=== PATIENT | female | born 1975 | race Caucasian/White ===

== ENCOUNTER 2024-07-01 09:32 | Outpatient (CLI) | payer OTHER, SELFPAY ==
--- NOTE | ~2024-07-01 | US_ITS ---
US pelvic complete w TV Ordering provider: Benny Boyd MD History: . N93.9 - Abnormal uterine and vaginal bleeding, unspecified . Comparison: None. Technique: Transabdominal and endovaginal ultrasound of the pelvis (Doppler ultrasound interrogation techniques used as needed for this exam.) FINDINGS: CERVIX: Normal. UTERUS: Measures 9.3x 4.5x 5.9 cm in length which is within normal limits and is anteverted. No myom etrial masses. ENDOMETRIUM: Normal in thickness measuring 7 mm. IUD is seen in the endometrial cavity. No endometria l masses, cysts or fluid. CUL DE SAC: No free fluid. RIGHT OVARY: Normal in size measuring 3x 2.1x 3 cm. Normal echotexture. Doppler vascular flow present . LEFT OVARY: Normal in size measuring 2.9x 1.1x 1.9 cm. Normal echotexture. Doppler vascular flow pres ent. ADNEXA: Normal. No mass. IMPRESSION: Unremarkable pelvic ultrasound. Reviewed, dictated and finalized at location [facility]. [facility]
== END 2024-07-01 09:33 | disposition home or self-care (01) ==
LOC: MICIMG 09:33
PROVIDERS: PCP Hospitalist; Visit Provider Student in an Organized Health Care Education/Training Program
DX: N93.9 Abnormal uterine and vaginal bleeding, unspecified (principal)
CPT/HCPCS: 76830; 76856

== ENCOUNTER 2024-08-18 14:36 | Emergency (ER) | payer OTHER, SELFPAY ==
[2024-08-18 14:46] VITALS: BP 105/70; PULSE 65; RESP 16; TEMP 36.2; O2SAT 100
--- NOTE | 2024-08-18 14:58 | ED.DENTAL ---
HPI - Dental/Oral General Chief complaint: Dental/Oral Stated complaint: DENTAL PAIN Time Seen by Provider: 08/18/24 14:58 Source: patient Mode of arrival: ambulatory Limitations: no limitations History of Present Illness HPI Narrative: 48-year-old female presents with right lower dental pain starting this morning. No known dental issues. Has appoint with dentist in 2 weeks. All systems reviewed and negative except as noted above. Related Data Home Medications ?Medication ?Instructions ?Recorded ?Confirmed ?Last Taken ?Type esterified estrogens 1.25 mg tablet 1.25 mg PO DAILY 06/22/24 08/18/24 Unknown History levothyroxine 125 mcg tablet 125 mcg PO DAILY 06/22/24 08/18/24 Unknown History (Synthroid) metformin 750 mg tablet,extended 750 mg PO DAILY 06/22/24 08/18/24 Unknown History release 24 hr testosterone undecanoate 100 mg 100 mg PO ONCE 06/22/24 08/18/24 Unknown History capsule testosterone undecanoate 112.5 mg 100 mg PO ONCE 06/22/24 08/18/24 Unknown History capsule tirzepatide 5 mg/0.5 mL 5 mg subcut WEEKLY 06/22/24 08/18/24 Unknown History subcutaneous pen injector (Mounjaro) Allergies Allergy/AdvReac Type Severity Reaction Status Date / Time Penicillins Allergy Intermediate Nausea and Verified 08/18/24 14:59 Vomiting amoxicillin Allergy Mild Hives Verified 08/18/24 14:59 doxycycline Allergy Mild Hives Verified 08/18/24 14:59 nitrofurantoin (From Allergy Mild Hives Verified 08/18/24 14:59 Macrobid) tetracycline Allergy Mild Hives Verified 08/18/24 14:59 diazepam (From Valium) AdvReac Intermediate Difficulty Verified 08/18/24 14:59 Breathing Review of Systems Review of Systems: CONSTITUTIONAL: Denies fever, chills, or sweats. EYES: Denies visual changes, redness, or discharge. ENT: Denies rhinorrhea, congestion, sore throat, or otalgia. Reports right lower dental pain. CARDIOVASCULAR: Denies chest pain, palpitations, or edema. RESPIRATORY: Denies cough or dyspnea. GASTROINTESTINAL: Denies abdominal pain, nausea, vomiting, or diarrhea. GENITOURINARY: Denies dysuria or hematuria. SKIN: Denies rash or itching. MUSCULOSKELETAL: Denies back pain, joint pain, or myalgia. NEUROLOGIC: Denies headache, numbness, or weakness. PSYCHIATRIC: Denies anxiety or depression. All other systems reviewed are negative, except as documented in HPI. [facility] Past Medical History Medical History (Updated 08/18/24 @ 15:03 by Giovanna Woodard NP) Encounter for removal of intrauterine contraceptive device Abnormal uterine bleeding (AUB) Nonalcoholic fatty liver disease Diabetes Surgical History Surgical History History of cataract surgery H/O thyroidectomy Hx laparoscopic cholecystectomy Family History Family History Father Heart disease Diabetes mellitus Grandparent Diabetes mellitus Other Breast cancer Carcinoma of colon Social History Social History (Updated 06/22/24 @ 08:57 by Catrina Saenz CMA) Smoking status: Never smoker Alcohol intake: current Alcohol use details: rare Substance use: never Substance use type: does not use Do You Feel Safe in your Home?: Yes Lack of Transportation: No Current Housing: I Have Housing Concerned About Future Housing: No Difficulty Paying Gas/Electric Bills: No Difficulty Paying for Meds: No Currently Unemployed: No Education: Master's Degree or Higher Difficulty w/ Childcare or Family Care: No Living arrangements: with family Occupation/Education: occupation Gender identity (if verbalized by the patient): Female Comments At time of signature, agree with nursing past medical, surgical, social and family history. There is no relevant family history pertinent to the presenting complaint. Exam Narrative: GENERAL: This is a well-nourished, well-developed patient, in no apparent distress. HEAD: normocephalic, atraumatic. EYES: PERRL. Sclera clear/white. Vision is grossly intact. EARS: External ears normal NOSE: External nose normal MOUTH: No dental issues noted. No swelling or erythema to comes concerning for abscess. NECK: Neck supple, non-tender without lymphadenopathy, masses or thyromegaly. CARDIOVASCULAR: Regular rate and rhythm without murmurs, gallops, or rubs. RESPIRATORY: Clear to auscultation. Breath sounds equal bilaterally. No wheezes, rales, or rhonchi. SKIN: warm, Dry, intact with no suspicious lesions or rash, good texture and turgor. NEURO: awake, alert, and oriented to person, place and time. There were no obvious focal neurologic abnormalities. EXTREMITIES: No joint tenderness, effusion, or edema noted. Course Course Level of Care: Express Care Visit Vital Signs Vital signs: Vital Signs Temperature 36.2 C L 08/18/24 14:46 Pulse Rate 65 08/18/24 14:46 Respiratory Rate 16 08/18/24 14:46 Blood Pressure 105/70 08/18/24 14:46 Pulse Oximetry 100 08/18/24 14:46 Temperature 36.2 C L 08/18/24 14:46 Pulse Rate 65 08/18/24 14:46 Respiratory Rate 16 08/18/24 14:46 Blood Pressure 105/70 08/18/24 14:46 Pulse Oximetry 100 08/18/24 14:46 Reviewed MDM - Dental/Oral MDM Narrative Medical decision making narrative: Patient alert, nontoxic. Will treat with antibiotic for dental pain. Recommend follow-up with dentist. Please be advised this is a medical document. It is intended for [id number] communication. It is written in medical language and may contain unfamiliar abbreviations or verbiage. Medical documents are intended to carry relevant information, facts as evident, and the clinical opinion of the practitioner at the time of the encounter. This report may have been done utilizing a voice recognition system. Attempts have been made to correct errors. However, there may be uncorrected grammatical, spelling, and recognition errors present. The file time of this note does not necessarily represent the time of service. Discharge Plan Discharge Clinical Impression: Pain, dental Patient Disposition: Home, Self-Care Condition: Stable Instructions: Antibiotic Form, Toothache (ED) Additional Instructions: Take antibiotic as prescribed until gone. Take antibiotic with full glass of water. Do not lie flat until 30 minutes after taking antibiotic. Take ibuprofen or Tylenol every 6-8 hours as needed for pain. Follow-up with dentist at scheduled appointment. Patient Language: Nicaraguan Prescriptions: New clindamycin HCl 300 mg capsule 300 mg PO Q8H 10 Days Qty: 30 0RF No Action levothyroxine [Synthroid] 125 mcg tablet 125 mcg PO DAILY Mounjaro 5 mg/0.5 mL pen injector 5 mg subcut WEEKLY metformin 750 mg tablet extended release 24 hr 750 mg PO DAILY esterified estrogens 1.25 mg tablet 1.25 mg PO DAILY testosterone undecanoate 112.5 mg capsule 100 mg PO ONCE Rx Instructions: must administer with a meal/food testosterone undecanoate 100 mg capsule 100 mg PO ONCE progesterone micronized 100 mg capsule 200 mg PO QAM Qty: 60 0RF Rx Instructions: off 7 days; repeat cycle Follow-up/Referrals: Dev,Dakota [Other] Time of Disposition: 15:04
== END 2024-08-18 15:07 | disposition home or self-care (01) ==
PROVIDERS: Emergency Provider Nurse Practitioner Family
DX: K08.89 Other specified disorders of teeth and supporting structures (principal); E11.9 Type 2 diabetes mellitus without complications; Z79.899 Other long term (current) drug therapy; Z79.84 Long term (current) use of oral hypoglycemic drugs
CPT/HCPCS: 99213; G0463

== ENCOUNTER 2024-08-19 23:37 | Emergency (ER) | payer SELFPAY ==
--- OUTSIDE RECORDS SUMMARY | 2024-08-19 23:39 | XMS_ITS | Referral Summary ---
Author Organization [address] lto Address [address] [place] [address] Care Team Providers Care Director Of Career Resources Name Role Phone Dakota Méndez MD Primary Care Provider [phone] Encounters Date Type Department Care Team Description 06/03/2024 3:19 PM MARKETING BUDGET ANALYST - 06/03/2024 4:28 PM MARKETING BUDGET ANALYST Emergency [facility] Emergency Department [address] [place] [address] Blu Wan MD DUB (dysfunctional uterine bleeding) (Primary Dx) Discharge Disposition: Discharge to home or self care from Last 3 Months Allergies Active Allergy Reactions Criticality Noted Date Comments Bee Venom Protein (Honey Bee) Anaphylaxis,Hives,I tching,Shortness of breath High 11/25/2016 Other reaction(s): Other (See Comments) Diazepam Dizziness,Hives,Itc kayli,Other (See comments),Shortness of breath,Swollen tongue High 09/12/2021 Reaction: diarrhea, SOB, hives Other reaction(s): Tongue and Throat Swelling Reaction: diarrhea, SOB, hives Other reaction(s): hives/vomit Other reaction(s): Tongue and Throat Swelling Reaction: diarrhea, SOB, hives Other reaction(s): hives/vomit Other reaction(s): Other (See comments), Swollen tongue Reaction: diarrhea, SOB, hives Other reaction(s): Tongue and Throat Swelling Reaction: diarrhea, SOB, hives Other reaction(s): hives/vomit Doxycycline Unknown 02/14/2022 Reaction: hives, SOB, diarrhea Fire Ant Swelling High 09/06/2020 Nitrofurantoin Headache Low 08/27/2021 Reaction: hives, diarrhea Reaction: hives, diarrhea Nitrofurantoin Monohyd/M-Cryst Headache,Hives,Itch ing,Nausea And Vomiting,Palpitatio ns,Rash Medium 08/01/2013 Other reaction(s): rash Other reaction(s): rash Other reaction(s): rash Penicillins Hives,Itching,Nause a And Vomiting,Rash,Short ness of breath High 08/01/2013 Reaction: hives,SOB, diarrhea Other reaction(s): hives/rash/SOB Reaction: hives,SOB, diarrhea Reaction: hives,SOB, diarrhea Other reaction(s): hives/rash/SOB Tetracyclines Diarrhea,Dizziness, Headache,Hives,Itch ing,Nausea And Vomiting,Other (See comments),Rash,Shor tness of breath High 08/01/2013 Reaction: hives, SOB, diarrhea Reaction: hives, SOB, diarrhea Reaction: hives, SOB, diarrhea Reaction: hives, SOB, diarrhea Reaction: hives, SOB, diarrhea Reaction: hives, SOB, diarrhea Other reaction(s): Other (See comments) Reaction: hives, SOB, diarrhea Reaction: hives, SOB, diarrhea Reaction: hives, SOB, diarrhea Reaction: hives, SOB, diarrhea Medications diphenhydrAMINE (Allergy, diphenhydrAMINE, ) 25 mg capsule 1 tablet EVERY 4 HOURS (route: oral) 2 Active levothyroxine (Synthroid) 175 mcg tablet 1 tablet DIRECTED (route: oral) 2 Active calcium carbonate-vitami n D3 2,500 mg (1,000 mg elemental)-800 unit tablet 1 tablet DAILY (route: oral) 2 Active melatonin 10 mg tablet 1 tablet DAILY (route: oral) 2 Active fluticasone propionate (FLONASE) 50 mcg/actuation nasal spray USE 2 SPRAYS IN EACH NARE DAILY 0 Active EPINEPHrine 0.3 mg/0.3 mL auto-injection syringe Inject into anterior-lateral thigh as needed for anaphylaxis. Call 911 immediately after injection. 8 Active copper (ParaGard T 380A) 380 square mm IUD by intrauterine route 5 Active zinc gluconate 50 mg tablet 1 tablet 2 TIMES DAILY (route: oral) 2 Active multivit-mineral s/folic acid (CENTRUM MULTIGUMMIES ORAL) Take by mouth Active albuterol HFA (PROVENTIL HFA,VENTOLIN HFA,PROAIR HFA) 90 mcg/actuation inhalerIndicatio ns:Mild intermittent asthma with acute exacerbation Inhale 2 puffs every 4 (four) hours as needed for shortness of breath 1 each 3 Active ibuprofen (ADVIL,MOTRIN) 800 mg tablet Take 1 tablet (800 mg total) by mouth every 8 (eight) hours as needed for pain 52 tablet 4 Active Additional Information Patient not taking.Reported on 01/17/2024 metFORMIN XR (GLUCOPHAGE XR) 750 mg 24 hr tablet Take 1 tablet (750 mg total) by mouth daily 4 Active progesterone 50 mg/mL injection Inject 1 mL (50 mg total) into the muscle as instructed daily 4 Active semaglutide (Ozempic) 2 mg/dose (8 mg/3 mL) pen injector injection Inject 2 mg under the skin once a week 4 Active cetirizine (ZyrTEC) 10 mg tablet Take 1 tablet (10 mg total) by mouth daily Active celecoxib (CeleBREX) 200 mg capsuleIndicatio ns:Internal derangement of left knee,Contusion of bone,Patellofemo ral disorder of left knee,Strain of left quadriceps, subsequent encounter Take 1 capsule (200 mg total) by mouth daily 30 capsule 4 Active ondansetron (ZOFRAN) 4 mg tablet Take 1 tablet (4 mg total) by mouth every 6 (six) hours 12 tablet 4 Active Active Problems Problem Noted Date Diagnosed Date Hyperinsulinemia 09/27/2023 Overview (01/17/2024): Last Assessment & Plan: Reinforced dietary lifestyle modifications for the reduction of weight and BMI to help improve chronic comorbid condition. Educated specifically on low-fat, low- carb diet, walking or exercise 30 minutes 3-5 times a week. Dizziness 05/26/2023 Fatty liver 01/12/2022 Overview (01/17/2024): Last Assessment & Plan: Reinforced dietary lifestyle modifications for the reduction of weight and BMI to help improve chronic comorbid condition. Educated specifically on low-fat, low- carb diet, walking or exercise 30 minutes 3-5 times a week. 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 Educated specifically on low-fat, low- carb diet, walking or exercise 30 minutes 3-5 times a week. Type 2 diabetes mellitus wit h hyperglycemia, without long-term current use of insulin 01/04/2020 Overview (01/17/2024): Pt has document BS >126 on multiple occasions with the highest being >300. (Sent to [employer] and pulled from [employer] recs) Her A1C is in the 6%. Description: Pt is urged to follow the recommended TLCs with low calorie diet, and daily aerobic exercise, and weight loss. Metformin, and Ozempic Last Assessment & Plan: Reinforced dietary lifestyle modifications for the reduction of weight and BMI to help improve chronic comorbid condition. Educated specifically on low-fat, low- carb diet, walking or exercise 30 minutes 3-5 times a week. Migraine without aura 06/08/2016 Myelopathy 05/18/2016 Optic neuritis 05/18/2016 Overview (01/17/2024): Transitioned From: Double vision with both eyes open Peripheral neuropathy 04/14/2016 Persistent insomnia 10/29/2014 Postoperative hypothyroidism 10/22/2014 Allergic rhinitis 09/13/2014 Overview (01/17/2024): Transitioned From: Acute sinusitis, recurrence not specified, unspecified location GERD (gastroesophageal reflux disease) 4 Overview (01/17/2024): Last Assessment & Plan: Reinforced dietary lifestyle modifications for the reduction of weight and BMI to help improve chronic comorbid condition. Educated specifically on low-fat, low- carb diet, walking or exercise 30 minutes 3-5 times a week. Resolved Problems Problem Noted Date Diagnosed Date Resolved Date Unspecified fracture of righ t calcaneus, subsequent encounter for fracture with routine healing 02/16/2022 01/17/2024 Displaced fracture of fifth metatarsal bone, left foot, subsequent encounter for fracture with routine healing 02/16/2022 01/17/2024 Displaced fracture of latera l malleolus of left fibula, subsequent encounter for closed fracture with routine healing 02/16/2022 01/17/2024 Immunizations Name Administration Dates Next Due Influenza, Trivalent, IM (MDV) 06/23/2018 Td, Adsorbed, Preservative F ree, Adult Use, Lf Unspecified 07/04/2020 Social History Tobacco Use Types Packs/Day Years Used Date Smoking Tobacco: Never Smokeless Tobacco: Never Personal Safety Answer Date Recorded Have you ever been in or are you currently in a harmful physical or emotional relationship or is someone making you feel afraid or unsafe? Denies 06/03/2024 Comments No Sex and Gender Information Value Date Recorded Sex Assigned at Not on file Legal Sex Female 10:08 AM CDT Gender Identity Not on file Sexual Orientation Not on file Last Filed Vital Signs Vital Sign Reading Time Taken Comments Blood Pressure 115/75 06/03/2024 1:41 PM MARKETING BUDGET ANALYST Pulse 71 06/03/2024 1:41 PM MARKETING BUDGET ANALYST Temperature 36.3 C (97.4 F) 06/03/2024 1:41 PM MARKETING BUDGET ANALYST Respiratory Rate 18 06/03/2024 1:41 PM MARKETING BUDGET ANALYST Oxygen Saturation 100% 06/03/2024 1:41 PM MARKETING BUDGET ANALYST Inhaled Oxygen Concentration - - Weight 68 kg (150 lb) 06/03/2024 1:41 PM MARKETING BUDGET ANALYST Height 172.7 cm (5' 8 ) 06/03/2024 1:41 PM MARKETING BUDGET ANALYST Body Mass Index 22.81 06/03/2024 1:41 PM MARKETING BUDGET ANALYST Plan of Treatment Not on file Procedures Procedure Name Priority Date/Time Associated Diagnosis Comments POCT HCG, URINE Routine 06/03/2024 2:30 PM MARKETING BUDGET ANALYST URINALYSIS, MICROSCOPIC ONLY STAT 06/03/2024 2:28 PM MARKETING BUDGET ANALYST URINALYSIS AND REFLEX TO MICROSCOPIC AND CULTURE STAT 06/03/2024 2:28 PM MARKETING BUDGET ANALYST EGFR STAT 06/03/2024 2:12 PM MARKETING BUDGET ANALYST DIFFERENTIAL AUTO STAT 06/03/2024 2:1 2 PM MARKETING BUDGET ANALYST ANTIBODY SCREEN STAT 06/03/2024 2:12 PM MARKETING BUDGET ANALYST ABO/RH STAT 06/03/2024 2:12 PM MARKETING BUDGET ANALYST COMPREHENSIVE METABOLIC PANEL STAT 06/03/2024 2:12 PM MARKETING BUDGET ANALYST TYPE AND SCREEN STAT 06/03/2024 2:12 PM MARKETING BUDGET ANALYST CBC WITH AUTO DIFFERENTIAL STAT 06/03/2024 2:12 PM MARKETING BUDGET ANALYST from Last 3 Months Results * POCT hCG, urine (06/03/2024 2:30 PM MARKETING BUDGET ANALYST) HCG, ur, POC Negative Negative Lot Number [id number] QC Backgroud Clear Acceptable QC Control Line Acceptable Urine 06/03/2024 2:30 PM MARKETING BUDGET ANALYST us Blu Wan MD POINT OF CARE TEST ORDERABLES Final Result * (ABNORMAL) Urinalysis reflex to microscopic and culture Urine (06/03/2024 2:28 PM MARKETING BUDGET ANALYST) Color, ur Straw Yellow Clarity, ur Clear Clear [facility] ([place]) Specific gravity, ur 1.004 1.003 - 1.030 [facility]) pH, urine 5.5 [facility]) Comment: Interpretive Data U rine pH is affected by diet, medications, systemic acid-base disturbances, and renal tubular function. pH may affect urinary stone formation. For example, urine pH below 6.0 may help reduce the tendency for calcium phosphate stones and pH greater than 6.0 may reduce the tendency for uric acid stone formation. Source: [facility] [employer] Current Interpretive Data was last revised on 2017 Protein, ur ql Negative Negative [facility] ([place]) Glucose, ur ql Negative Negative [facility] ([place]) Ketones, ur Negative Negative [facility] ([place]) Bilirubin, ur Negative Negative [facility] ([place]) Blood, ur 2+(A) Negative [facility] ([place]) Urobilinogen, ur <2.0 <2.0 mg/dL [facility] ([place]) Nitrite, ur Negative Negative [facility]) Leukocyte esterase, ur Negative Negative [facility] ([place]) UA reflex comment Reflex to microscopic UA will be performed. [facility]) Urine 06/03/2024 2:28 PM MARKETING BUDGET ANALYST 06/03/2024 2:31 PM MARKETING BUDGET ANALYST us Blu Wan MD LAB MICROBIOLOGY - GENERAL ORD ERABLES Final Result [facility] ([place]) 1 [facility] Department of Laboratories [place], [place] [id number] * Urinalysis, microscopic only (06/03/2024 2:28 PM MARKETING BUDGET ANALYST) WBC, ur 0-5 0 - 5 /HPF RBC, ur 0-2 0 - 2 /HPF [facility]) Epithelial cells, squamous, ur 1-5 0 - 5 /HPF [facility] ([place]) Culture Reflex Comment Reflex conditions for urine culture (WBC >10) not met. [facility] ([place]) Urine 06/03/2024 2:28 PM MARKETING BUDGET ANALYST 06/03/2024 2:31 PM MARKETING BUDGET ANALYST Blu Wan MD LAB URINE ORDERABLES Final Res ult Performing Organization Address City/[facility]/ZIP Co de Phone Number [facility] ([place]) 1 [facility] [place] [address] * eGFR (06/03/2024 2:12 PM MARKETING BUDGET ANALYST) eGFR 72 >=60 mL/min/1. 73 m2 Comment: Interpretive Data Reference Interval Normal >/= 90 mL/min/1.73m2 Mildly decreased* 60 - 89 mL/min/1.73m2 Mildly to moderately decreased 45 - 59 mL/min/1.73m2 Moderately to severely decreased 30 - 44 mL/min/1.73m2 Severely decreased 15 - 29 mL/min/1.73m2 Kidney Failure < 15 mL/min/1.73m2 *Relative to young adult level Estimated glomerular filtration rate is determined by the 2020 CKD-EPI equation recommended by the National Kidney Foundation (A Unifying Approach to GFR Estimation: Recommendations of the NKF-ASK Task Force on Reassessing the Inclusion of Race in Diagnosing Kidney Disease, JASN 2020). The CKD-EPI equation should not be used for patients with unstable renal function and has not been validated in children and those over 70. Current interpretive data was last reviewed 2021. Blood 06/03/2024 2:12 PM MARKETING BUDGET ANALYST 06/03/2024 2:18 PM MARKETING BUDGET ANALYST Blu Wan MD LAB BLOOD ORDERABLES Final Res ult Performing Organization Address City/[facility]/ZIP Co de Phone Number [facility] ([place]) 1 [facility] [place] [address] * Differential, auto (06/03/2024 2:12 PM MARKETING BUDGET ANALYST) Neutrophil abs 4.4 1.5 - 6.5 K/cumm Imm gran abs 0.0 0.0 - 0.1 K/cumm [facility] ([place]) Lymphocyte abs 2.0 0.8 - 3.3 K/cumm [facility] ([place]) Monocyte abs 0.4 0.2 - 0.8 K/cumm [facility] ([place]) Eosinophil abs 0.1 0.0 - 0.5 K/cumm [facility] ([place]) Basophil abs 0.1 0.0 - 0.1 K/cumm [facility] ([place]) Neutrophil pct 63.0 % [facility] ([place]) Comment: Interpretive Data Percent cell count reference ranges are not reported, since discordance with absolute values may lead to misinterpretation of CBC data. Current Interpretive Data was last revised on 2017. Imm gran pct 0.1 % [facility] ([place]) Comment: Interpretive Data Percent cell count reference ranges are not reported, since discordance with absolute values may lead to misinterpretation of CBC data. Current Interpretive Data was last revised on 2017. Lymphocyte pct 28.5 % [facility] ([place]) Comment: Interpretive Data Percent cell count reference ranges are not reported, since discordance with absolute values may lead to misinterpretation of CBC data. Current Interpretive Data was last revised on 2017. Monocyte pct 5.6 % [facility] ([place]) Comment: Interpretive Data Percent cell count reference ranges are not reported, since discordance with absolute values may lead to misinterpretation of CBC data. Current Interpretive Data was last revised on 2017. Eosinophil pct 1.9 % [facility] ([place]) Comment: Interpretive Data Percent cell count reference ranges are not reported, since discordance with absolute values may lead to misinterpretation of CBC data. Current Interpretive Data was last revised on 2017. Basophil pct 0.9 % [facility] ([place]) Comment: Interpretive Data Percent cell count reference ranges are not reported, since discordance with absolute values may lead to misinterpretation of CBC data. Current Interpretive Data was last revised on 2017. Blood 06/03/2024 2:12 PM MARKETING BUDGET ANALYST 06/03/2024 2:18 PM MARKETING BUDGET ANALYST us Blu Wan MD LAB BLOOD ORDERABLES Final Res ult [facility] ([place]) 1 [facility] [place] [address] * CBC with auto differential (06/03/2024 2:12 PM MARKETING BUDGET ANALYST) WBC 7.0 3.8 - 9.9 K/cumm Hgb 13.2 11.9 - 15.5 g/dL [facility] ([place]) Hct 38.6 35.6 - 45.5 % [facility] ([place]) Plt 337 150 - 400 K/cumm [facility] ([place]) MPV 9.2 9.1 - 12.3 fL [facility] ([place]) RBC 4.59 3.90 - 5.20 M/cumm [facility] ([place]) MCV 84.1 81.3 - 96.4 fL [facility] ([place]) MCH 28.8 27.1 - 33.3 pg [facility] ([place]) MCHC 34.2 32.3 - 35.7 g/dL [facility] ([place]) RDW CV 13.0 11.1 - 14.9 % [facility] ([place]) RDW SD 39.8 35.7 - 48.1 fL [facility] ([place]) NRBC abs 0.00 0.00 - 0.01 K/cumm [facility] ([place]) Blood (Blood, Venous) 06/03/2024 2:12 PM MARKETING BUDGET ANALYST 06/03/2024 2:18 PM MARKETING BUDGET ANALYST us Blu Wan MD LAB BLOOD ORDERABLES Final Res ult [facility] ([place]) 1 [facility] [place] [address] * ABO/Rh (06/03/2024 2:12 PM MARKETING BUDGET ANALYST) ABO/Rh O Positive Blood 06/03/2024 2:12 PM MARKETING BUDGET ANALYST 06/03/2024 2:18 PM MARKETING BUDGET ANALYST Narrative [facility] ([place]) - 06/03/2024 3:13 PM MARKETING BUDGET ANALYST Has the patient had Daratumumab or Isatuximab in the past 6 months?->Unknown Blu Wan MD LAB BLOOD BANK TEST ORDERABLES Final Result Performing Organization Address City/[facility]/ZIP Co de Phone Number [facility] ([place]) 1 [facility] [place] [place] [address] * Antibody screen (06/03/2024 2:12 PM MARKETING BUDGET ANALYST) Darvin, indirect, Gel Interpretation Negative ABSC Blood 06/03/2024 2:12 PM MARKETING BUDGET ANALYST 06/03/2024 2:18 PM MARKETING BUDGET ANALYST Narrative [facility]) - 06/03/2024 3:13 PM MARKETING BUDGET ANALYST Has the patient had Daratumumab or Isatuximab in the past 6 months?->Unknown Blu Wan MD LAB BLOOD BANK TEST ORDERABLES Final Result Performing Organization Address [facility] de Phone Number [facility] ([place]) 1 [facility] [place] [place] [address] * Comprehensive metabolic panel (06/03/2024 2:12 PM MARKETING BUDGET ANALYST) Sodium 136 135 - 145 mmol/L Potassium, pl 4.2 3.3 - 4.9 mmol/L [facility] ([place]) Chloride 102 97 - 110 mmol/L [facility] ([place]) CO2 25 22 - 32 mmol/L [facility] ([place]) Anion gap 9 2 - 15 mmol/L [facility] ([place]) BUN 11 6 - 25 mg/dL [facility] ([place]) Creatinine 0.98 0.60 - 1.10 mg/dL [facility] ([place]) Glucose 88 70 - 199 mg/dL [facility] ([place]) Comment: Interpretive Data Fasting glucose >/= 126 mg/dl is diagnostic for diabetes. Fasting is defined as no caloric intake for at least 8 hours. Fasting glucose between 100 mg/dl to 125 mg/dl is diagnostic of prediabetes. In a patient with classic symptoms of hyperglycemia or hyperglycemic crisis, a random glucose >/= 200 mg/dl is diagnostic for diabetes. In the absence of unequivocal hyperglycemia, results should be confirmed by repeat testing. The classification and Diagnosis of Diabetes Diabetes Care 202; 46: S19-S40. Current interpretive data was last revised 2022. Calcium 10.0 8.5 - 10.3 mg/dL [facility] ([place]) Bilirubin, total 0.3 0.1 - 1.2 mg/dL [facility] ([place]) Protein, pl 7.1 6.5 - 8.5 g/dL [facility] ([place]) Albumin 4.7 3.5 - 5.0 g/dL [facility] ([place]) Alk phos 86 40 - 130 Units/L [facility] ([place]) ALT 8 7 - 45 Units/L [facility] ([place]) AST 16 10 - 45 Units/L [facility] ([place]) Blood 06/03/2024 2:12 PM MARKETING BUDGET ANALYST 06/03/2024 2:18 PM MARKETING BUDGET ANALYST Blu Wan MD LAB BLOOD ORDERABLES Final Res ult [facility] ([place]) 1 [facility] Department of Laboratories [place], [place] [id number] from Last 3 [place] [address] [facility] H[facility]/PPO Address: [address] [address] [place] [address] [facility] H[facility]/PPO Address: [address] [address] [place] [address] Advance Directives For more information, please contact: [phone] * Full Code (Latest Code Status on File) Date Activated Date Inactivated Comments 05/26/2023 4:30 PM 05/26/2023 9:10 PM Care Teams Director Of Career Resources Relationship Specialty Start Date End Date Dakota Méndez MD [facility] [place] [address] PCP - General Family Medicine 02/10/24
--- OUTSIDE RECORDS SUMMARY | 2024-08-19 23:39 | XMS_ITS | Continuity of Care Document ---
Author Organization [facility] Address [address] [place] [address] Phone Care Team Providers Care Mortgage Loan Underwriter Name Role Phone Ebony Couch MD Unavailable Unavailable Allergies, Adverse Reactions, Alerts Substance Reaction Status Criticality NITROFURANTOIN MACROCRYSTALLINE Active No Information nitrofurantoin Active No Informatio n venom-honey bee Active No Informati on lactose Active No Information diazepam Hives Active No Information Penicillins Hives Active No Information doxycycline Hives Active No Information Medications Medication Instructions Dosage Effective Dates (start - stop) Status Comments B-COMPLEX PLUS VITAMIN C (unknown strength) Not Available - Active ANAI-MAG (unknown strength) Not Available - Active ASPIRIN (unknown strength) Not Available - No Longer Active Procedures Procedure Date Office/outpatient visit, est, prob foc F FT ARCH SUPRT PREMOLD LONGIT Office/outpatient visit, est, prob foc J AFO MULTILIGAMENTUS Ankle Support Office/outpatient visit, est, prob foc D ec X-ray exam, ankle, 2 views X-ray exam, foot, complete, 3+ views Jun Office/outpatient visit, est, prob foc N X-ray exam, foot, complete, 3+ views May Office/outpatient visit, new, detailed N Advance Directives Directive Yes / No Effective Date File Name No Information Encounters Encounter Description Practice Location Reason(s) For Visit Diagnoses Date Provider Providers Copied on Encounter Office/outpat ient visit, est, prob foc [facility], [address] [place] [address], [id number], [phone] [facility] DOI 05-04-2012 Recheck left ankle and cuboid fracture (chief complaint) Fx closed fibula NOSFx closed foot, cuboid Iza B. [address] [place] [address], [facility], . tel:[phone] Office/outpat ient visit, est, prob [facility], [address] [place] [address], [id number], tel:[phone] [facility] Fx closed fibula NOSFx closed foot, cuboidAfter care, healing traumatic fx, lower leg Couch B. [address] [place] [address], [facility], . tel:[phone] Office/outpat ient visit, est, prob [facility], [address] [place] [address], [id number], tel:[phone] [facility] Fx closed fibula NOSFx closed foot, cuboid Couch B. [address] [place] [address], [facility], [place]. tel:[phone] Office/outpat ient visit, est, prob [facility], [address] [place] [address], [id number], tel:[phone] [facility] recheck left ankle (chief complaint) Fx closed foot, cuboidFx closed fibula NOS Couch B. [address] [place] [address], [facility], [place]. tel:[phone] Office/outpat ient visit, new, [facility], [address] [place] [address], [id number], tel:[phone] [facility] Fx closed fibula NOSFx closed foot, cuboid Iza [facility] [address] [place], [address], [place]. tel:[phone] Family History Family Member Type Diagnosis Age At Onset No Information Payers Payer name Insurance type Covered green party ID Tatiana sexton(s) IVORY Frazier [id number] Social History Type Description Quantity Date Captured Comments Alcohol Use Details No Caffeine Use Details No Tobacco Use Status No Information Smoking Status No Information Smoking Tobacco Use Details Cigarette: No Details Available Cigarette: No Details Available Sex Female Vital Signs Date / Time: Height Weight BMI Pulse Rate Blood Pressure Temperature Respiratory Rate Body Surface Area Head Circumference Head Circ. Percentile Wt./Jorge. Percentile BMI percentile Pulse Ox Inhaled Ox 10:20 AM 68.00 in 72.575 kg (160.00 lbs) 24.3 3 kg/m eter (2) 82 /min 130/80 mm[Hg] Chief Complaint And Reason For Visit From encounter dated '08/10/2012 10:15'. DOI 05-04-2012 Recheck left ankle and cuboid fracture (chief complaint) Reason For Referral Reason For Referral No Information History Of Present Illness Encounter Date Complaint History Of Prese nt Illness DOI 05-04-2012 Reche ck left ankle and cuboid fracture Functional Status Date Functional Assessmen t No Information Instructions Date Instruction Additional Infor mation Ok to take over the counter medi cations Spenco othotics may place in kristin es for support Follow work restrictions as note d Ok to take over the counter medi cations Ice affected area Wean out of boot int o regular shoe with active ankle brace Take medications with food Follow work restrictions as note d start weight bearing in boot as tolerated. Don't have to sleep in the boot if preferred. Follow work restrictions as note d Continue boot and nonweightbeari ng Follow work restrictions as note d Wear brace as instructed Reviewed medications Rest affected area Medication instructi ons were given regarding Take one Aspirin tablet daily.. Use assistance devic e support (cane, crutches, walker) Weight bearing status: non weigh t bearing in boot Assessments Type Assessment Date No Information Patient Care Teams Name Effective Dates (start - stop) Status Members No Information
--- OUTSIDE RECORDS SUMMARY | 2024-08-19 23:39 | XMS_ITS | Clinical Summary ---
Author Organization [facility] Address [address] [place] [address] Care Team Providers Care Distribution Supervisor Name Role Phone Dakota Méndez MD Primary Care Provider [phone] Allergies Active Allergy Reactions Criticality Noted Date [...] with the highest being >300. (Sent to [employer] and pulled from [employer] recs) Her A1C is in the 6%. [...] closed fracture with routine healing 02/16/2022 01/17/2024 Encounters Date Type Department Care Team Description 06/03/2024 3:19 PM ADMINISTRATIVE TECH - 06/03/2024 4:28 PM ADMINISTRATIVE TECH Emergency [facility] Emergency Department [address] [place], [place] [id number] Blu Wan MD DUB (dysfunctional uterine bleeding) (Primary Dx) Discharge Disposition: Discharge to home or self care from Last 3 Months Immunizations Name Administration Dates Next Due Influenza, Trivalent, IM (MDV) 06/23/2018 Td, Adsorbed, Preservative F ree, Adult Use, Lf Unspecified 07/04/2020 Surgical History Surgery Date Site/Laterality Comments THYROIDECTOMY 07/05/2014 - 07/04/2015 CHOLECYSTECTOMY 07/05/2012 - 07/04/2013 OTHER SURGICAL HISTORY calanus surgery Medical History Medical History Date Comments Gall stones Thyroid cancer (HCC) Breast cancer (HCC) Unspecified fracture of righ t calcaneus, subsequent encounter for fracture with routine healing 02/16/2022 Displaced fracture of fifth metatarsal bone, left foot, subsequent encounter for fracture with routine healing 02/16/2022 Displaced fracture of latera l malleolus of left fibula, subsequent encounter for closed fracture with routine healing 02/16/2022 Family History Medical History Relation Name Comments Arthritis Other Relation Name Status Comments Other Social History Tobacco Use Types Packs/Day Years [...] on file Sexual Orientation Not on file Obstetrics History Last Filed Vital Signs Vital Sign Reading Time Taken Comments Blood Pressure 115/75 06/03/2024 1:41 PM ADMINISTRATIVE TECH Pulse 71 06/03/2024 1:41 PM ADMINISTRATIVE TECH Temperature 36.3 C (97.4 F) 06/03/2024 1:41 PM ADMINISTRATIVE TECH Respiratory Rate 18 06/03/2024 1:41 PM ADMINISTRATIVE TECH Oxygen Saturation 100% 06/03/2024 1:41 PM ADMINISTRATIVE TECH Inhaled Oxygen Concentration - - Weight 68 kg (150 lb) 06/03/2024 1:41 PM ADMINISTRATIVE TECH Height 172.7 cm (5' 8 ) 06/03/2024 1:41 PM ADMINISTRATIVE TECH Body Mass Index 22.81 06/03/2024 1:41 PM ADMINISTRATIVE TECH Plan of Treatment Health Maintenance Due Date Last Done Comments Albumin Creatinine Ratio, Urine 1976 Cervical Cancer Screening 1976 Colon Cancer Screening-Colonoscopy 1976 Depression Screening 1976 Hemoglobin A1C 1976 Hepatitis C Screening 1976 Dilated Eye Exam 1976 Foot Exam 1976 Pneumococcal vaccine <65 (1 of 2 - PCV) 1982 Hepatitis B Screening 1994 Regular Well Visit/Exam 18-64 1994 Breast Cancer Screening-Mammogram 06/07/2020 019 DTaP/Tdap/Td Vaccine (1 - Tdap) 07/05/2020 0 Influenza Vaccine (#1) 2024 06/23/2018 Lipid Panel 09/23/2024 09/24/2023 eGFR 06/03/2025 06/03/2024, 07/2 07/2023, 05/26/2023 Procedures Procedure Name Priority Date/Time Associated Diagnosis Comments POCT HCG, URINE Routine 06/03/2024 2:30 PM ADMINISTRATIVE TECH URINALYSIS, MICROSCOPIC ONLY STAT 06/03/2024 2:28 PM ADMINISTRATIVE TECH URINALYSIS AND REFLEX TO MICROSCOPIC AND CULTURE STAT 06/03/2024 2:28 PM ADMINISTRATIVE TECH EGFR STAT 06/03/2024 2:12 PM ADMINISTRATIVE TECH DIFFERENTIAL AUTO STAT 06/03/2024 2:1 2 PM ADMINISTRATIVE TECH ANTIBODY SCREEN STAT 06/03/2024 2:12 PM ADMINISTRATIVE TECH ABO/RH STAT 06/03/2024 2:12 PM ADMINISTRATIVE TECH COMPREHENSIVE METABOLIC PANEL STAT 06/03/2024 2:12 PM ADMINISTRATIVE TECH TYPE AND SCREEN STAT 06/03/2024 2:12 PM ADMINISTRATIVE TECH CBC WITH AUTO DIFFERENTIAL STAT 06/03/2024 2:12 PM ADMINISTRATIVE TECH from Last 3 Months Results * POCT hCG, urine (06/03/2024 2:30 PM ADMINISTRATIVE TECH) HCG, ur, POC Negative Negative Lot Number [id number] QC Backgroud Clear Acceptable QC Control Line Acceptable Urine 06/03/2024 2:30 PM ADMINISTRATIVE TECH Blu Wan MD POINT OF CARE TEST ORDERABLES Final Result * (ABNORMAL) Urinalysis reflex to microscopic and culture Urine (06/03/2024 2:28 PM ADMINISTRATIVE TECH) Color, ur Straw Yellow Clarity, ur Clear Clear [facility] ([place]) Specific gravity, ur 1.004 1.003 - 1.030 [facility] ([place]) pH, urine 5.5 [facility] ([place]) Comment: Interpretive Data U rine pH is affected by diet, medications, systemic acid-base disturbances, and renal tubular function. pH may affect urinary stone formation. For example, urine pH below 6.0 may help reduce the tendency for calcium phosphate stones and pH greater than 6.0 may reduce the tendency for uric acid stone formation. Source: [facility] [employer] Current Interpretive Data was last revised on [...] Reflex to microscopic UA will be performed. [facility]) Urine 06/03/2024 2:28 PM ADMINISTRATIVE TECH 06/03/2024 2:31 PM ADMINISTRATIVE TECH Blu Wan MD LAB MICROBIOLOGY - GENERAL ORD ERABLES Final Result Performing Organization Address City/[facility]/ZIP Co de Phone Number [facility] ([place]) [address] [facility] [place] [address] * Urinalysis, microscopic only (06/03/2024 2:28 PM ADMINISTRATIVE TECH) WBC, ur 0-5 0 - 5 /HPF RBC, ur 0-2 0 - 2 /HPF [facility] ([place]) Epithelial cells, squamous, ur 1-5 0 - 5 /HPF [facility] ([place]) Culture Reflex Comment Reflex conditions for urine culture (WBC >10) not met. [facility] ([place]) Urine 06/03/2024 2:28 PM ADMINISTRATIVE TECH 06/03/2024 2:31 PM ADMINISTRATIVE TECH Blu Wan MD LAB URINE ORDERABLES Final Res ult [facility] ([place]) [address] [facility] [place] [address] * eGFR (06/03/2024 2:12 PM ADMINISTRATIVE TECH) eGFR 72 >=60 mL/min/1. 73 m2 Comment: [...] last reviewed 2021. Blood 06/03/2024 2:12 PM ADMINISTRATIVE TECH 06/03/2024 2:18 PM ADMINISTRATIVE TECH us Blu Wan MD LAB BLOOD ORDERABLES Final Res ult SOL [facility] [address] [facility] Department [place] [address] * Differential, auto (06/03/2024 2:12 PM ADMINISTRATIVE TECH) Neutrophil abs 4.4 1.5 - 6.5 K/cumm [...] revised on 2017. Blood 06/03/2024 2:12 PM ADMINISTRATIVE TECH 06/03/2024 2:18 PM ADMINISTRATIVE TECH us Blu Wan MD LAB BLOOD ORDERABLES Final Res ult [facility] [address] [facility] Department [place] [address] * CBC with auto differential (06/03/2024 2:12 PM ADMINISTRATIVE TECH) WBC 7.0 3.8 - 9.9 K/cumm Hgb [...] ([place]) Blood (Blood, Venous) 06/03/2024 2:12 PM ADMINISTRATIVE TECH 06/03/2024 2:18 PM ADMINISTRATIVE TECH Blu Wan MD LAB BLOOD ORDERABLES Final Res ult [facility] [address] [facility] [place] [address] * ABO/Rh (06/03/2024 2:12 PM ADMINISTRATIVE TECH) ABO/Rh O Positive Blood 06/03/2024 2:12 PM ADMINISTRATIVE TECH 06/03/2024 2:18 PM ADMINISTRATIVE TECH Narrative [facility] ([place]) - 06/03/2024 3:13 PM ADMINISTRATIVE TECH Has the patient had Daratumumab or Isatuximab in the past 6 months?->Unknown Blu Wan MD LAB BLOOD BANK TEST ORDERABLES Final Result [facility] [address] [facility] [place] [address] * Antibody screen (06/03/2024 2:12 PM ADMINISTRATIVE TECH) Darvin, indirect, Gel Interpretation Negative ABSC Blood 06/03/2024 2:12 PM ADMINISTRATIVE TECH 06/03/2024 2:18 PM ADMINISTRATIVE TECH Narrative [facility] ([place]) - 06/03/2024 3:13 PM ADMINISTRATIVE TECH Has the patient had Daratumumab or Isatuximab in the past 6 months?->Unknown Blu Wan MD LAB BLOOD BANK TEST ORDERABLES Final Result [facility] ([place]) [address] [facility] Department [place] [address] * Comprehensive metabolic panel (06/03/2024 2:12 PM ADMINISTRATIVE TECH) Sodium 136 135 - 145 mmol/L Potassium, pl 4.2 3.3 - 4.9 mmol/L [facility] ([place]) Chloride 102 97 - 110 mmol/L [facility] CO2 25 22 - 32 mmol/L [facility]) Anion gap 9 2 - 15 mmol/L [facility] ([place] BUN 11 6 - 25 mg/dL [facility]) Creatinine 0.98 0.60 - 1.10 mg/dL [facility]) Glucose 88 70 - 199 mg/dL [facility] ([place]) Comment: Interpretive Data Fasting glucose >/= [...] [facility] ([place]) Blood 06/03/2024 2:12 PM ADMINISTRATIVE TECH 06/03/2024 2:18 PM ADMINISTRATIVE TECH us Blu Wan MD LAB BLOOD ORDERABLES Final Res ult [facility] ([place]) [address] [facility] Department [place] [address] from Last 3 Months Insurance [facility] Address: [facility] [address] [place] [address] [facility] H[facility]/PPO Address: [facility] [address] [place] [address] Advance Directives For more information, please contact: [phone] * Full Code (Latest Code Status on File) Date Activated Date Inactivated Comments 05/26/2023 4:30 PM 05/26/2023 9:10 PM Care Teams Distribution Supervisor Relationship Specialty Start Date End Date Dakota Méndez MD [address] [place] [id number] PCP - General Family Medicine 02/10/24
--- OUTSIDE RECORDS SUMMARY | 2024-08-19 23:39 | XMS_ITS | Clinical Summary ---
Author Organization [facility] Address [address] [place] [address] Care Team Providers Care Leather Tacker Name Role Phone Unavailable Primary Care Provider Unavailabl e Allergies Active Allergy Reactions Criticality Noted Date Comments Diazepam Anaphylaxis High 12/20/2022 Penicillins Anaphylaxis High 12/20/2022 Tetracycline Anaphylaxis High 12/20/2022 Medications albuterol sulfate HFA 90 mcg/actuation aerosol inhaler Inhale 2 puffs by mouth every 4 (four) hours as needed for shortness of breath 8.5 Gram 12/20/2022 12:24 PM CDT 3 Active predniSONE (DELTASONE) 20 mg tablet Take 2 tablets (40 mg) by mouth daily for 5 days 10 Tablet 12/20/2022 12:24 PM CDT 3 Active EPINEPHrine (EPIPEN) 0.3 mg/0.3 mL Auto-Injector Inject into anterior-lateral thigh as needed for anaphylaxis. Call 911 immediately after injection. 2 Each 12/01/2023 7:10 PM CDT 4 Active semaglutide (Ozempic) 1 mg/dose (4 mg/3 mL) Pen Injector Inject 1 mg under the skin 1 (one) time per week. 3 mL 1 4 Active ibuprofen (MOTRIN) 800 mg tablet Take 1 tablet (800 mg total) by mouth every 8 (eight) hours as needed for pain 52 Tablet 01/15/2024 9:27 AM CDT 4 Active celecoxib (CeleBREX) 200 mg capsule Take 1 Capsule (200 mg) by mouth daily. 30 Capsule 01/18/2024 11:29 AM CDT 4 Active tirzepatide (Mounjaro) 5 mg/0.5 mL Pen Injector Inject 5 mg by subcutaneous injection every 7 days. 2 mL 5 04/24/2024 11:54 AM CDT 4 Active metFORMIN (GLUCOPHAGE XR) 750 mg Extended Release 24 hour tablet Take 1 tablet (750 mg) by mouth in the morning. Do not crush, chew, or split. 90 Tablet 07/24/2024 12:29 PM OIL EXPLORATION ENGINEER 4 Active tirzepatide (Mounjaro) 5 mg/0.5 mL Pen Injector Inject 5 mg under the skin every 7 (seven) days. 2 mL 5 07/24/2024 12:29 PM OIL EXPLORATION ENGINEER 4 Active Synthroid 125 mcg tablet Take 1 Tablet (125 mcg) by mouth daily in the morning. 90 Tablet 3 08/18/2024 3:32 PM OIL EXPLORATION ENGINEER 4 Active azithromycin (ZITHROMAX) 250 mg tablet Take 2 tablets on day 1 followed by 1 tablet daily on days 2-5. 6 Tablet 06/15/2024 10:04 AM OIL EXPLORATION ENGINEER 4 Active methylPREDNISo lone (MEDROL DOSPACK) 4 mg Tablets, Dose Pack Follow package instructions 21 Tablet 06/15/2024 4:53 PM OIL EXPLORATION ENGINEER 4 Active progesterone micronized (PROMETRIUM) 100 mg Capsule Take 2 Capsules (200 mg) by mouth daily in the morning. Off for 7 days; repeat cycle. 60 Capsule 07/24/2024 12:29 PM OIL EXPLORATION ENGINEER 5 Active clindamycin HCL (CLEOCIN) 300 mg Capsule Take 1 Capsule (300 mg) by mouth every 8 hours for 10 days. 30 Capsule 08/18/2024 3:32 PM OIL EXPLORATION ENGINEER 5 08/28/19 25 Active clarithromycin (BIAXIN) 500 mg tablet Take 0.5 Tablets (250 mg) by mouth 2 times daily for 10 days. 10 Tablet 07/12/2024 2:10 PM OIL EXPLORATION ENGINEER 5 07/22/19 25 Encounters Date Type Department Care Team Description 07/27/2024 External Device Data [facility] ABSTRACTION Provider, Abstract from Last 3 Months Social History Tobacco Use Types Packs/Day Years Used Date Smoking Tobacco: Never Assessed Comments Unknown Sex and Gender Information Value Date Recorded Sex Assigned at Not on file Legal Sex Female 10:33 AM CDT Gender Identity Not on file Sexual Orientation Not on file Plan of Treatment Health Maintenance Due Date Last Done Comments DTAP/TDAP/TD VACCINES (1 - Tdap) 09/03/1995 HEPATITIS B VACCINES (1 of 3 - 19+ 3-dose series) 09/03/1995 CERVICAL CANCER SCREENING 2006 BREAST CANCER SCREENING 2016 COLORECTAL SCREENING 2021 Colorectal Cancer Screening 2021 FIT-DNA Q 3 years 2021 FIT/FOBT Q 1 year 2021 Flex Sig/CT Colonography Q 5 years 2021 INFLUENZA VACCINE (#1) 2024 PNEUMOCOCCAL VACCINE 0-64 YEARS Aged Out No longer eligible based on patient's age to complete this topic Insurance [employer] (INTERNAL) [facility] [employer] Commercial
--- OUTSIDE RECORDS SUMMARY | 2024-08-19 23:39 | XMS_ITS | Encounter Summary ---
Author Organization [facility] Address [address] [place] [address] Care Team Providers Care Executive Coach Name Role Phone No, Physician Primary Care Provider [phone] Unknown, Notinfile Primary Care Provider Unavail able Festus Grigsby MD Primary Care Provider [phone] Dakota Méndez MD Primary Care Provider [phone] Encounter Details Date Type Department Care Team (Late st Contact Info) Description 12/15/2023 Telephone [facility] [address] [address] Festus Grigsby MD [address] [place] [address] Social History Tobacco Use Types Packs/Day Years Used Date Smoking Tobacco: Never Smokeless Tobacco: Never Personal Safety Answer Date Recorded Have you ever been in or are you currently in a harmful physical or emotional relationship or is someone making you feel afraid or unsafe? Denies 05/26/2023 Comments Unknown Sex and Gender Information Value Date Recorded Sex Assigned at Not on file Legal Sex Female 10:08 AM CDT Gender Identity Not on file Sexual Orientation Not on file documented as of this encounter Plan of Treatment Not on file documented as of this encounter Visit Diagnoses Not on filedocumented in this encounter Care Teams Executive Coach Relationship Specialty Start Date End Date No, Physician PCP - General 12/20/22 01/13/24 Unknown, Notinfile PCP - General 01/17/24 01/22/24 Festus Grigsby MD [address] [place] [address] PCP - General Family Medicine 01/23/24 02/08/24 Dakota Méndez MD [facility] [place] [address] PCP - General Family Medicine 02/10/24 documented as of this encounter
[2024-08-19 23:58] VITALS: BP 117/58; PULSE 71; RESP 15; TEMP 36.4; O2SAT 99
--- NOTE | 2024-08-20 01:30 | PC.NURSE ---
AT 0130 ON 08/20/2024 IT WAS NOTICED BY REGISTRATION; BERNARDINO THAT PT LEFT PRIOR TO BEING SEEN BY EDP. BERNARDINO MADE THIS CHARGE-RN AWARE.
--- OUTSIDE RECORDS SUMMARY | 2024-08-20 01:35 | XMS_ITS | Continuity of Care Document ---
Author Organization [facility] Address [address] [place] [address] Phone Care Team Providers Care Fastener Technologist Name Role Phone Ebony Couch MD Unavailable [...] Encounter Office/outpat ient visit, est, prob foc [facility], [address] [place] [address], [id number], [phone] [facility] DOI 05-04-2012 Recheck left ankle and cuboid fracture (chief complaint) Fx closed fibula NOSFx closed foot, cuboid Iza B. [address] [place] [address], [facility], . tel:[phone] Office/outpat ient visit, est, prob [facility], [address] [place] [address], [id number], tel:[phone] [facility] Fx closed fibula NOSFx closed foot, cuboidAfter care, healing traumatic fx, lower leg Couch B. [address] [place] [address], [facility], . tel:[phone] Office/outpat ient visit, est, prob [facility], [address] [place] [address], [id number], tel:[phone] [facility] Fx closed fibula NOSFx closed foot, cuboid Couch B. [address] [place] [address], [facility], [place]. tel:[phone] Office/outpat ient visit, est, prob [facility], [address] [place] [address], [id number], tel:[phone] [facility] recheck left ankle (chief complaint) Fx closed foot, cuboidFx closed fibula NOS Couch B. [address] [place] [address], [facility], [place]. tel:[phone] Office/outpat ient visit, new, [facility], [address] [place] [address], [id number], tel:[phone] [facility] Fx closed fibula NOSFx closed foot, cuboid Iza Barkley [address] [place], [address], [place]. tel:[phone] Family History Family Member Type Diagnosis Age At Onset No Information Payers Payer name Insurance type Covered alliance party ID Tatiana sexton(s) IVORY Frazier [id number] Social History Type Description Quantity Date Captured [...]
--- OUTSIDE RECORDS SUMMARY | 2024-08-20 01:35 | XMS_ITS | Referral Summary ---
Author Organization [address] lto Address [address] ted [facility] [place] [address] Care Team Providers Care Fisher Diving Name Role Phone Dakota Méndez MD Primary Care Provider [phone] Encounters Date Type Department Care Team Description 06/03/2024 3:19 PM COMMUNITY CENTER COORDINATOR - 06/03/2024 4:28 PM COMMUNITY CENTER COORDINATOR Emergency [facility] Emergency Department [address] [place] [address] Blu Wan MD DUB (dysfunctional [...] with the highest being >300. (Sent to [employer] and pulled from [employer] recs) Her A1C is in the 6%. [...] fracture with routine healing 02/16/2022 01/17/2024 Immunizations Immunization Administration Dates Next Due Influenza, Trivalent, IM [...] Comments Blood Pressure 115/75 06/03/2024 1:41 PM COMMUNITY CENTER COORDINATOR Pulse 71 06/03/2024 1:41 PM COMMUNITY CENTER COORDINATOR Temperature 36.3 C (97.4 F) 06/03/2024 1:41 PM COMMUNITY CENTER COORDINATOR Respiratory Rate 18 06/03/2024 1:41 PM COMMUNITY CENTER COORDINATOR Oxygen Saturation 100% 06/03/2024 1:41 PM COMMUNITY CENTER COORDINATOR Inhaled Oxygen Concentration - - Weight 68 kg (150 lb) 06/03/2024 1:41 PM COMMUNITY CENTER COORDINATOR Height 172.7 cm (5' 8 ) 06/03/2024 1:41 PM COMMUNITY CENTER COORDINATOR Body Mass Index 22.81 06/03/2024 1:41 PM COMMUNITY CENTER COORDINATOR Plan of Treatment Not on file Procedures Procedure Name Priority Date/Time Associated Diagnosis Comments POCT HCG, URINE Routine 06/03/2024 2:30 PM COMMUNITY CENTER COORDINATOR URINALYSIS, MICROSCOPIC ONLY STAT 06/03/2024 2:28 PM COMMUNITY CENTER COORDINATOR URINALYSIS AND REFLEX TO MICROSCOPIC AND CULTURE STAT 06/03/2024 2:28 PM COMMUNITY CENTER COORDINATOR EGFR STAT 06/03/2024 2:12 PM COMMUNITY CENTER COORDINATOR DIFFERENTIAL AUTO STAT 06/03/2024 2:1 2 PM COMMUNITY CENTER COORDINATOR ANTIBODY SCREEN STAT 06/03/2024 2:12 PM COMMUNITY CENTER COORDINATOR ABO/RH STAT 06/03/2024 2:12 PM COMMUNITY CENTER COORDINATOR COMPREHENSIVE METABOLIC PANEL STAT 06/03/2024 2:12 PM COMMUNITY CENTER COORDINATOR TYPE AND SCREEN STAT 06/03/2024 2:12 PM COMMUNITY CENTER COORDINATOR CBC WITH AUTO DIFFERENTIAL STAT 06/03/2024 2:12 PM COMMUNITY CENTER COORDINATOR from Last 3 Months Results * POCT hCG, urine (06/03/2024 2:30 PM COMMUNITY CENTER COORDINATOR) HCG, ur, POC Negative Negative Lot Number [id number] QC Backgroud Clear Acceptable QC Control Line Acceptable Urine 06/03/2024 2:30 PM COMMUNITY CENTER COORDINATOR us Blu Wan MD POINT OF CARE TEST ORDERABLES Final Result * (ABNORMAL) Urinalysis reflex to microscopic and culture Urine (06/03/2024 2:28 PM COMMUNITY CENTER COORDINATOR) Color, ur Straw Yellow Clarity, ur Clear [...] tendency for uric acid stone formation. Source: [facility] Current Interpretive Data was last revised on [...] [facility] ([place]) Urine 06/03/2024 2:28 PM COMMUNITY CENTER COORDINATOR 06/03/2024 2:31 PM COMMUNITY CENTER COORDINATOR us Blu Wan MD LAB MICROBIOLOGY - GENERAL ORD ERABLES Final Result [facility] ([place]) 1 [facility] Department of Laboratories [place], [place] [id number] * Urinalysis, microscopic only (06/03/2024 2:28 PM COMMUNITY CENTER COORDINATOR) WBC, ur 0-5 0 - 5 /HPF RBC, ur 0-2 0 - 2 /HPF [facility] ([place]) Epithelial cells, squamous, ur 1-5 0 - 5 /HPF [facility] ([place]) Culture Reflex Comment Reflex conditions for urine culture (WBC >10) not met. [facility] ([place]) Urine 06/03/2024 2:28 PM COMMUNITY CENTER COORDINATOR 06/03/2024 2:31 PM COMMUNITY CENTER COORDINATOR Blu Wan MD LAB URINE ORDERABLES Final Res ult Performing Organization Address City/[facility]/ZIP Co de Phone Number [facility] ([place]) 1 [facility] [place] [address] * eGFR (06/03/2024 2:12 PM COMMUNITY CENTER COORDINATOR) eGFR 72 >=60 mL/min/1. 73 m2 Comment: [...] last reviewed 2021. Blood 06/03/2024 2:12 PM COMMUNITY CENTER COORDINATOR 06/03/2024 2:18 PM COMMUNITY CENTER COORDINATOR Blu Wan MD LAB BLOOD ORDERABLES Final Res ult Performing Organization Address City/[facility]/ZIP Co de Phone Number [facility] ([place]) [address] [facility] [place] [address] * Differential, auto (06/03/2024 2:12 PM COMMUNITY CENTER COORDINATOR) Neutrophil abs 4.4 1.5 - 6.5 K/cumm [...] revised on 2017. Blood 06/03/2024 2:12 PM COMMUNITY CENTER COORDINATOR 06/03/2024 2:18 PM COMMUNITY CENTER COORDINATOR us Blu Wan MD LAB BLOOD ORDERABLES Final Res ult [facility] ([place]) 1 [facility] [place] [address] * CBC with auto differential (06/03/2024 2:12 PM COMMUNITY CENTER COORDINATOR) WBC 7.0 3.8 - 9.9 K/cumm Hgb [...] ([place]) Blood (Blood, Venous) 06/03/2024 2:12 PM COMMUNITY CENTER COORDINATOR 06/03/2024 2:18 PM COMMUNITY CENTER COORDINATOR us Blu Wan MD LAB BLOOD ORDERABLES Final Res ult [facility] ([place]) 1 [facility] [place] [address] * ABO/Rh (06/03/2024 2:12 PM COMMUNITY CENTER COORDINATOR) ABO/Rh O Positive Blood 06/03/2024 2:12 PM COMMUNITY CENTER COORDINATOR 06/03/2024 2:18 PM COMMUNITY CENTER COORDINATOR Narrative [facility] ([place]) - 06/03/2024 3:13 PM COMMUNITY CENTER COORDINATOR Has the patient had Daratumumab or Isatuximab in the past 6 months?->Unknown Blu Wan MD LAB BLOOD BANK TEST ORDERABLES Final Result Performing Organization Address City/[facility]/ZIP Co de Phone Number [facility] ([place]) 1 [facility] [place] [address] * Antibody screen (06/03/2024 2:12 PM COMMUNITY CENTER COORDINATOR) Darvin, indirect, Gel Interpretation Negative ABSC Blood 06/03/2024 2:12 PM COMMUNITY CENTER COORDINATOR 06/03/2024 2:18 PM COMMUNITY CENTER COORDINATOR Narrative [facility] [place]) - 06/03/2024 3:13 PM COMMUNITY CENTER COORDINATOR Has the patient had Daratumumab or Isatuximab in the past 6 months?->Unknown Blu Wan MD LAB BLOOD BANK TEST ORDERABLES Final Result Performing Organization Address [facility] de Phone Number [facility] ([place]) 1 [facility] [place] [address] * Comprehensive metabolic panel (06/03/2024 2:12 PM COMMUNITY CENTER COORDINATOR) Sodium 136 135 - 145 mmol/L Potassium, pl 4.2 3.3 - 4.9 mmol/L [facility] ([place]) Chloride 102 97 - 110 mmol/L [facility] ([place]) CO2 25 22 - 32 mmol/L [facility] ([place]) Anion gap 9 2 - 15 mmol/L [facility] ([place]) BUN 11 6 - 25 mg/dL [facility] ([place]) Creatinine 0.98 0.60 - 1.10 mg/dL [facility] ([place]) Glucose 88 70 - 199 mg/dL [facility] ([place]) Comment: Interpretive Data Fasting glucose >/= [...] [facility] ([place]) Blood 06/03/2024 2:12 PM COMMUNITY CENTER COORDINATOR 06/03/2024 2:18 PM COMMUNITY CENTER COORDINATOR Blu Wan MD LAB BLOOD ORDERABLES Final Res ult [facility] ([place]) 1 [facility] Department of Laboratories [place], [place] [id number] from Last [address] [place] [address] [facility] Advance Directives For more information, please contact: [phone] * Full Code (Latest Code Status on File) Date Activated Date Inactivated Comments 05/26/2023 4:30 PM 05/26/2023 9:10 PM Care Teams Fisher Diving Relationship Specialty Start Date End Date Dakota Méndez MD [facility] [place] [address] PCP - General Family Medicine 02/10/24
--- OUTSIDE RECORDS SUMMARY | 2024-08-20 01:35 | XMS_ITS | Clinical Summary ---
Author Organization [address] lt Address [address] [place] [address] Care Team Providers Care Mortgage Loan Closer Name Role Phone Dakota Méndez MD Primary Care Provider [phone] Allergies Active Allergy Reactions Criticality Noted Date [...] with the highest being >300. (Sent to [employer] and pulled from [employer] recs) Her A1C is in the 6%. [...] Department Care Team Description 06/03/2024 3:19 PM PULL UP HAND - 06/03/2024 4:28 PM PULL UP HAND Emergency [facility] Emergency Department [address] [place], [place] [id number] Blu Wan MD DUB (dysfunctional uterine bleeding) (Primary Dx) Discharge Disposition: Discharge to home or self care from Last 3 Months Immunizations Immunization Administration Dates Next Due Influenza, [...] Comments Blood Pressure 115/75 06/03/2024 1:41 PM PULL UP HAND Pulse 71 06/03/2024 1:41 PM PULL UP HAND Temperature 36.3 C (97.4 F) 06/03/2024 1:41 PM PULL UP HAND Respiratory Rate 18 06/03/2024 1:41 PM PULL UP HAND Oxygen Saturation 100% 06/03/2024 1:41 PM PULL UP HAND Inhaled Oxygen Concentration - - Weight 68 kg (150 lb) 06/03/2024 1:41 PM PULL UP HAND Height 172.7 cm (5' 8 ) 06/03/2024 1:41 PM PULL UP HAND Body Mass Index 22.81 06/03/2024 1:41 PM PULL UP HAND Plan of Treatment Health Maintenance Due Date Last Done Comments Albumin Creatinine Ratio, Urine 1976 Cervical Cancer Screening 1976 Colon Cancer Screening-Colonoscopy 1976 Depression Screening 1976 Hemoglobin A1C 1976 Hepatitis C Screening 1976 Dilated Eye Exam 1976 Foot Exam 1976 Hepatitis B Screening 1994 Regular Well Visit/Exam 18-64 1994 Pneumococcal vaccine <65 (1 of 2 - PCV) 09/03/1995 Breast Cancer Screening-Mammogram 06/07/2020 019 DTaP/Tdap/Td Vaccine (1 - Tdap) 07/05/2020 0 Influenza Vaccine (#1) 2024 06/23/2018 Lipid Panel 09/23/2024 09/24/2023 eGFR 06/03/2025 06/03/2024, 07/2 07/2023, 05/26/2023 Procedures Procedure Name Priority Date/Time Associated Diagnosis Comments POCT HCG, URINE Routine 06/03/2024 2:30 PM PULL UP HAND URINALYSIS, MICROSCOPIC ONLY STAT 06/03/2024 2:28 PM PULL UP HAND URINALYSIS AND REFLEX TO MICROSCOPIC AND CULTURE STAT 06/03/2024 2:28 PM PULL UP HAND EGFR STAT 06/03/2024 2:12 PM PULL UP HAND DIFFERENTIAL AUTO STAT 06/03/2024 2:1 2 PM PULL UP HAND ANTIBODY SCREEN STAT 06/03/2024 2:12 PM PULL UP HAND ABO/RH STAT 06/03/2024 2:12 PM PULL UP HAND COMPREHENSIVE METABOLIC PANEL STAT 06/03/2024 2:12 PM PULL UP HAND TYPE AND SCREEN STAT 06/03/2024 2:12 PM PULL UP HAND CBC WITH AUTO DIFFERENTIAL STAT 06/03/2024 2:12 PM PULL UP HAND from Last 3 Months Results * POCT hCG, urine (06/03/2024 2:30 PM PULL UP HAND) HCG, ur, POC Negative Negative Lot Number [id number] QC Backgroud Clear Acceptable QC Control Line Acceptable Urine 06/03/2024 2:30 PM PULL UP HAND Blu Wan MD POINT OF CARE TEST ORDERABLES Final Result * (ABNORMAL) Urinalysis reflex to microscopic and culture Urine (06/03/2024 2:28 PM PULL UP HAND) Color, ur Straw Yellow Clarity, ur Clear [...] tendency for uric acid stone formation. Source: [facility] [employer] Current Interpretive Data was last revised on [...] [facility] ([place]) Urine 06/03/2024 2:28 PM PULL UP HAND 06/03/2024 2:31 PM PULL UP HAND lBu Wan MD LAB MICROBIOLOGY - GENERAL ORD ERABLES Final Result Performing Organization Address City/[facility]/ZIP Co de Phone Number [facility] ([place]) [address] [facility] [place] [address] * Urinalysis, microscopic only (06/03/2024 2:28 PM PULL UP HAND) WBC, ur 0-5 0 - 5 /HPF RBC, ur 0-2 0 - 2 /HPF [facility] ([place]) Epithelial cells, squamous, ur 1-5 0 - 5 /HPF [facility] ([place]) Culture Reflex Comment Reflex conditions for urine culture (WBC >10) not met. [facility] ([place]) Urine 06/03/2024 2:28 PM PULL UP HAND 06/03/2024 2:31 PM PULL UP HAND Blu Wan MD LAB URINE ORDERABLES Final Res ult [facility] ([place]) 1 [facility] [place] [address] * eGFR (06/03/2024 2:12 PM PULL UP HAND) eGFR 72 >=60 mL/min/1. 73 m2 Comment: [...] last reviewed 2021. Blood 06/03/2024 2:12 PM PULL UP HAND 06/03/2024 2:18 PM PULL UP HAND us Blu Wan MD LAB BLOOD ORDERABLES Final Res ult [facility] 1 [facility] [place] [address] * Differential, auto (06/03/2024 2:12 PM PULL UP HAND) Neutrophil abs 4.4 1.5 - 6.5 K/cumm [...] revised on 2017. Blood 06/03/2024 2:12 PM PULL UP HAND 06/03/2024 2:18 PM PULL UP HAND us Blu Wan MD LAB BLOOD ORDERABLES Final Res ult [facility] ([place]) 1 [facility] [place] [address] * CBC with auto differential (06/03/2024 2:12 PM PULL UP HAND) WBC 7.0 3.8 - 9.9 K/cumm Hgb [...] ([place]) Blood (Blood, Venous) 06/03/2024 2:12 PM PULL UP HAND 06/03/2024 2:18 PM PULL UP HAND Blu Wan MD LAB BLOOD ORDERABLES Final Res ult [facility] ([place]) 1 [facility] [place] [address] * ABO/Rh (06/03/2024 2:12 PM PULL UP HAND) ABO/Rh O Positive Blood 06/03/2024 2:12 PM PULL UP HAND 06/03/2024 2:18 PM PULL UP HAND Narrative [facility] ([place]) - 06/03/2024 3:13 PM PULL UP HAND Has the patient had Daratumumab or Isatuximab in the past 6 months?->Unknown Blu Wan MD LAB BLOOD BANK TEST ORDERABLES Final Result [facility] ([place]) 1 [facility] [place] [address] * Antibody screen (06/03/2024 2:12 PM PULL UP HAND) Darvin, indirect, Gel Interpretation Negative ABSC Blood 06/03/2024 2:12 PM PULL UP HAND 06/03/2024 2:18 PM PULL UP HAND Narrative [facility] ([place]) - 06/03/2024 3:13 PM PULL UP HAND Has the patient had Daratumumab or Isatuximab in the past 6 months?->Unknown Blu Wan MD LAB BLOOD BANK TEST ORDERABLES Final Result [facility] ([place]) 1 [facility] [place] [address] * Comprehensive metabolic panel (06/03/2024 2:12 PM PULL UP HAND) Sodium 136 135 - 145 mmol/L Potassium, [...] [facility] ([place]) Blood 06/03/2024 2:12 PM PULL UP HAND 06/03/2024 2:18 PM PULL UP HAND us Blu Wan MD LAB BLOOD ORDERABLES Final Res ult [facility] ([place]) 1 [facility] [place] [address] from Last 3 Months Insurance [facility] Advance Directives For more information, please contact: [phone] * Full Code (Latest Code Status on File) Date Activated Date Inactivated Comments 05/26/2023 4:30 PM 05/26/2023 9:10 PM Care Teams Mortgage Loan Closer Relationship Specialty Start Date End Date Dakota Méndez MD [address] [place] [id number] PCP - General Family Medicine 02/10/24
--- OUTSIDE RECORDS SUMMARY | 2024-08-20 01:35 | XMS_ITS | Clinical Summary ---
Author Organization [employer] [facility] Address [address] [address] Care Team Providers Care Repair Service Dispatcher Name Role Phone Unavailable Primary Care Provider [...] or split. 90 Tablet 07/24/2024 12:29 PM MAMMOGRAPHER 4 Active tirzepatide (Mounjaro) 5 mg/0.5 mL Pen Injector Inject 5 mg under the skin every 7 (seven) days. 2 mL 5 07/24/2024 12:29 PM MAMMOGRAPHER 4 Active Synthroid 125 mcg tablet Take 1 Tablet (125 mcg) by mouth daily in the morning. 90 Tablet 3 08/18/2024 3:32 PM MAMMOGRAPHER 4 Active azithromycin (ZITHROMAX) 250 mg tablet Take 2 tablets on day 1 followed by 1 tablet daily on days 2-5. 6 Tablet 06/15/2024 10:04 AM MAMMOGRAPHER 4 Active methylPREDNISo lone (MEDROL DOSPACK) 4 mg Tablets, Dose Pack Follow package instructions 21 Tablet 06/15/2024 4:53 PM MAMMOGRAPHER 4 Active progesterone micronized (PROMETRIUM) 100 mg Capsule Take 2 Capsules (200 mg) by mouth daily in the morning. Off for 7 days; repeat cycle. 60 Capsule 07/24/2024 12:29 PM MAMMOGRAPHER 5 Active clindamycin HCL (CLEOCIN) 300 mg Capsule Take 1 Capsule (300 mg) by mouth every 8 hours for 10 days. 30 Capsule 08/18/2024 3:32 PM MAMMOGRAPHER 5 08/28/19 25 Active clarithromycin (BIAXIN) 500 mg tablet Take 0.5 Tablets (250 mg) by mouth 2 times daily for 10 days. 10 Tablet 07/12/2024 2:10 PM MAMMOGRAPHER 5 07/22/19 25 Encounters Date Type Department [...]
--- OUTSIDE RECORDS SUMMARY | 2024-08-20 01:35 | XMS_ITS | Encounter Summary ---
Author Organization [facility] Healthcare Address [address] [place] [address] Care Team Providers Care Dress Draper Name Role Phone No, Physician Primary Care Provider [phone] Unknown, Notinfile Primary Care Provider Unavail able Festus Grigsby MD Primary Care Provider [phone] Dakota Méndez MD Primary Care Provider [phone] Encounter Details Date Type Department Care Team (Late st Contact Info) Description 12/15/2023 Telephone Family Physicians [address] [address] Festus Grigsby MD [address] [place] [address] Social History Tobacco Use Types Packs/Day [...] on filedocumented in this encounter Care Teams Dress Draper Relationship Specialty Start Date End Date No, Physician PCP - General 12/20/22 01/13/24 Unknown, Notinfile PCP - General 01/17/24 01/22/24 Festus Grigsby MD [address] [place] [address] PCP - General Family Medicine 01/23/24 02/08/24 Dakota Méndez MD [facility] [place] [address] PCP - General Family Medicine 02/10/24 documented as of this encounter
== END 2024-08-20 01:30 | disposition left against medical advice (07) ==
DX: K08.89 Other specified disorders of teeth and supporting structures (principal)
CPT/HCPCS: 99199

== ENCOUNTER 2024-08-20 08:58 | Emergency (ER) | payer OTHER, SELFPAY ==
--- NOTE | 2024-08-20 09:00 | ED.DENTAL ---
HPI - Dental/Oral General Chief complaint: Dental/Oral Stated complaint: Tooth Pain Time Seen by Provider: 08/20/24 09:00 Source: patient Mode of arrival: ambulatory Limitations: no limitations History of Present Illness HPI Narrative: Mayra is a 48-year-old female patient presenting to the clinic today with complaints of dental pain. She was seen 2 days ago in the clinic and given prescription for clindamycin. Went to the ED last night for right lower dental pain/swelling. State she was there for 3 hours and ended up walking out without being seen. Denies any fever, chills, or bodyaches, States it is burning and very tender to touch. Pain is radiating into her right lateral neck and into the right ear. Has a dentist appointment scheduled in 2 weeks. Related Data Home Medications ?Medication ?Instructions ?Recorded ?Confirmed ?Last Taken ?Type esterified estrogens 1.25 mg tablet 1.25 mg PO DAILY 06/22/24 08/18/24 Unknown History levothyroxine 125 mcg tablet 125 mcg PO DAILY 06/22/24 08/18/24 Unknown History (Synthroid) metformin 750 mg tablet,extended 750 mg PO DAILY 06/22/24 08/18/24 Unknown History release 24 hr testosterone undecanoate 100 mg 100 mg PO ONCE 06/22/24 08/18/24 Unknown History capsule testosterone undecanoate 112.5 mg 100 mg PO ONCE 06/22/24 08/18/24 Unknown History capsule tirzepatide 5 mg/0.5 mL 5 mg subcut WEEKLY 06/22/24 08/18/24 Unknown History subcutaneous pen injector (Mounjaro) Allergies Allergy/AdvReac Type Severity Reaction Status Date / Time Penicillins Allergy Intermediate Nausea and Verified 08/20/24 00:04 Vomiting amoxicillin Allergy Mild Hives Verified 08/20/24 00:04 doxycycline Allergy Mild Hives Verified 08/20/24 00:04 nitrofurantoin (From Allergy Mild Hives Verified 08/20/24 00:04 Macrobid) tetracycline Allergy Mild Hives Verified 08/20/24 00:04 diazepam (From Valium) AdvReac Intermediate Difficulty Verified 08/20/24 00:04 Breathing Review of Systems Review of Systems: Pertinent positives per HPI. Patient denies any fever, chills, rash, headache, visual changes, dizziness, cough, runny nose, sore throat, shortness of breath, chest pain, palpitations, nausea, vomiting, diarrhea, constipation, abdominal pain, or any urinary issues. [facility] Past Medical History Medical History Encounter for removal of intrauterine contraceptive device Abnormal uterine bleeding (AUB) Nonalcoholic fatty liver disease Diabetes Surgical History Surgical History History of cataract surgery H/O thyroidectomy Hx laparoscopic cholecystectomy Family History Family History Father Heart disease Diabetes mellitus Grandparent Diabetes mellitus Other Breast cancer Carcinoma of colon Social History Social History Smoking status: Never smoker Alcohol intake: current Alcohol use details: rare Substance use: never Substance use type: does not use Do You Feel Safe in your Home?: Yes Lack of Transportation: No Current Housing: I Have Housing Concerned About Future Housing: No Difficulty Paying Gas/Electric Bills: No Difficulty Paying for Meds: No Currently Unemployed: No Education: Master's Degree or Higher Difficulty w/ Childcare or Family Care: No Living arrangements: with family Occupation/Education: occupation Gender identity (if verbalized by the patient): Female Comments At the time of my signature, I reviewed and agree with the nursing past medical, surgical, social, and family history. There is no relevant family history pertinent to the patient complaint. Exam Narrative: General: Well-developed, well nourished, in no apparent distress Head: Normocephalic, atraumatic Eyes: Pupils equally round and reactive to light bilaterally, EOM intact, sclera and conjunctive clear, no discharge, lids normal Ears: TMs intact and clear, ear canals clear, no drainage, grossly hearing normal. Nose: Nares patent, no discharge, no inflammation, no sinus tenderness. Mouth: Oropharynx without lesions or masses, good dentition, MMM. Right lower jaw swelling without fluctuance. TTP with mild erythema, ttp over right lower 2nd and 3rd molars. Neck: Supple, trachea midline, no enlargement of anterior or posterior cervical nodes, no thyroid masses or goiter palpable. Cardio: Regular rate and rhythm, s1 and s2 normal, no murmur appreciated. Resp: Clear to auscultation bilaterally anteriorly and posteriorly, no rhonchi, rales, wheezing or rubs Course Course Emergency Course: Portions of this record may have been created with voice recognition software. Level of Care: Express Care Visit Vital Signs Vital signs: Vital Signs Temperature 36.4 C 08/20/24 09:07 Pulse Rate 75 08/20/24 09:07 Respiratory Rate 16 08/20/24 09:07 Blood Pressure 124/74 08/20/24 09:07 Pulse Oximetry 100 08/20/24 09:07 Temperature 36.4 C 08/20/24 09:07 Pulse Rate 75 08/20/24 09:07 Respiratory Rate 16 08/20/24 09:07 Blood Pressure 124/74 08/20/24 09:07 Pulse Oximetry 100 08/20/24 09:07 Vital signs reviewed MDM - Dental/Oral MDM Narrative Medical decision making narrative: At the time of visit patient is resting comfortably on the exam table. Patient appears to be nontoxic. Medications: Rocephin 1 g IM-patient has had this medication before has not had allergic reaction. Plan: Patient has a dental abscess to the right lower jaw/tooth-2nd molar. Not able to drain in the clinic today. Rocephin 1 g IM given in the clinic today. After watching patient for 15 minutes after Rocephin injection there was no reaction. Will have patient stop clindamycin and start cefdinir and metronidazole. Follow-up with dentist as soon as possible. Supportive measures were discussed with the patient and they voiced understanding discharge instructions and agrees to treatment plan. Return precautions reviewed Differential Diagnosis Differential diagnosis: Likely gingival abscess, dental caries, toothache, dental abscess, fracture of tooth and aphthous ulcer Discharge Plan Discharge Clinical Impression: Dental abscess Patient Disposition: Home, Self-Care Condition: Stable Instructions: Antibiotic Form, Dental Abscess (ED) Additional Instructions: Rocephin 1 GM IM given in the clinic today. Stop clindamycin and start metronidazole and cefdinir as prescribed. Recommend taking a probiotic 2 hours before or 2 hours after the antibiotic daily Increase fluids and stay well hydrated May apply ice pack to the affected area to help alleviate pain May apply Orajel to the affected area to help alleviate pain Take Tylenol/ibuprofen- may alternate every 4 hours as needed for pain or may be more beneficial to take 1Gm tylenol and 800mg ibuprofen together every 8 hours. Follow-up with dentist as scheduled- may try to call the office to see if you can get in sooner. Patient Language: Italian Prescriptions: New metronidazole 500 mg tablet 500 mg PO Q8H 10 Days Qty: 30 0RF cefdinir 300 mg capsule 300 mg PO Q12H 10 Days Qty: 20 0RF No Action clindamycin HCl 300 mg capsule 300 mg PO Q8H 10 Days Qty: 30 0RF levothyroxine [Synthroid] 125 mcg tablet 125 mcg PO DAILY Mounjaro 5 mg/0.5 mL pen injector 5 mg subcut WEEKLY metformin 750 mg tablet extended release 24 hr 750 mg PO DAILY esterified estrogens 1.25 mg tablet 1.25 mg PO DAILY testosterone undecanoate 112.5 mg capsule 100 mg PO ONCE Rx Instructions: must administer with a meal/food testosterone undecanoate 100 mg capsule 100 mg PO ONCE progesterone micronized 100 mg capsule 200 mg PO QAM Qty: 60 0RF Rx Instructions: off 7 days; repeat cycle Follow-up/Referrals: Seb,MD Festus [Primary Care Provider] - Time of Disposition: 09:38 Quality NIHSS Nursing Documentation ED NIHSS nursing documentation: reviewed/agree
[2024-08-20 09:07] VITALS: BP 124/74; PULSE 75; RESP 16; TEMP 36.4; O2SAT 100
[2024-08-20] MEDS: cefTRIAXone 1 GM, LIDOCAINE 1% LOCAL INJ 2.1 ML IM (09:18)
== END 2024-08-20 09:43 | disposition home or self-care (01) ==
PROVIDERS: Emergency Provider Nurse Practitioner Family; PCP Hospitalist
DX: K04.7 Periapical abscess without sinus (principal); E11.9 Type 2 diabetes mellitus without complications; Z79.84 Long term (current) use of oral hypoglycemic drugs; K76.0 Fatty (change of) liver, not elsewhere classified
CPT/HCPCS: 96372; 99213; G0463; J0696; J2003

== ENCOUNTER 2024-10-16 10:26 | Outpatient (CLI) | payer OTHER, SELFPAY ==
--- OUTSIDE RECORDS SUMMARY | 2024-10-16 11:44 | XMS_ITS | Continuity of Care Document ---
Author Organization [facility] Address [address] [place] [address] Phone Care Team Providers Care Study Director Name Role Phone Ebony Couch MD Unavailable [...] Encounter Office/outpat ient visit, est, prob foc [facility], [address] [place] [address], [id number], tel:[phone] [facility] DOI 05-04-2012 Recheck left ankle and cuboid fracture (chief complaint) Fx closed fibula NOSFx closed foot, cuboid Iza B. [address] [place] [address], [facility], . tel:[phone] Office/outpat ient visit, est, prob [facility], [address] [place] [address], [id number], [phone] [facility] Fx closed fibula NOSFx closed foot, cuboidAfter care, healing traumatic fx, lower leg Couch B. [address] [place] [address], [facility], . tel:[phone] Office/outpat ient visit, est, prob [facility] [employer], [address] [place] [address], [id number], [phone] [facility] Fx closed fibula NOSFx closed foot, cuboid Couch B. [address] [place] [address], [facility], [place]. tel:[phone] Office/outpat ient visit, est, prob [facility], [address] [place] [address], [id number], tel:[phone] [facility] recheck left ankle (chief complaint) Fx closed foot, cuboidFx closed fibula NOS Couch B. [address] [place] [address], [facility], [place]. tel:[phone] Office/outpat ient visit, new, [facility], [address] [place] [address], [id number], tel:[phone] [facility] Fx closed fibula NOSFx closed foot, cuboid Iza Barkley [address] [place], [address], [place]. tel:[phone] Family History Family Member Type Diagnosis Age At Onset No Information Payers Payer name Insurance type Covered constitution party ID Tatiana sexton(s) IVORY Frazier [id number] Social History Type Description Quantity Date Captured [...]
--- OUTSIDE RECORDS SUMMARY | 2024-10-16 11:44 | XMS_ITS | Clinical Summary ---
Author Organization [facility] Address [address] [place] [address] Care Team Providers Care Prison Keeper Name Role Phone Unavailable Primary Care Provider Unavailabl e Allergies Active Allergy Reactions Criticality Noted Date Comments Diazepam Anaphylaxis High 12/20/2022 Penicillins Anaphylaxis High 12/20/2022 Tetracycline Anaphylaxis High 12/20/2022 Medications albuterol sulfate HFA 90 mcg/actuation aerosol inhaler Inhale 2 puffs by mouth every 4 (four) hours as needed for shortness of breath 8.5 Gram 3 12:24 PM CDT 12/21/19 23 Active predniSONE (DELTASONE) 20 mg tablet Take 2 tablets (40 mg) by mouth daily for 5 days 10 Tablet 3 12:24 PM CDT 12/21/19 23 Active semaglutide (Ozempic) 1 mg/dose (4 mg/3 mL) Pen Injector Inject 1 mg under the skin 1 (one) time per week. 3 mL 1 12/15/19 24 Active ibuprofen (MOTRIN) 800 mg tablet Take 1 tablet (800 mg total) by mouth every 8 (eight) hours as needed for pain 52 Tablet 4 9:27 AM CDT 01/14/20 24 Active celecoxib (CeleBREX) 200 mg capsule Take 1 Capsule (200 mg) by mouth daily. 30 Capsule 4 11:29 AM CDT 01/17/20 24 Active tirzepatide (Mounjaro) 5 mg/0.5 mL Pen Injector Inject 5 mg by subcutaneous injection every 7 days. 2 mL 5 4 11:54 AM CDT 03/22/20 24 Active tirzepatide (Mounjaro) 5 mg/0.5 mL Pen Injector Inject 5 mg under the skin every 7 (seven) days. 2 mL 5 5 12:29 PM [employer] 05/01/20 24 Active Synthroid 125 mcg tablet Take 1 Tablet (125 mcg) by mouth daily in the morning. 90 Tablet 3 5 3:32 PM [employer] 05/17/20 24 Active azithromycin (ZITHROMAX) 250 mg tablet Take 2 tablets on day 1 followed by 1 tablet daily on days 2-5. 6 Tablet 4 10:04 AM [employer] 06/15/20 24 Active methylPREDNIS olone (MEDROL DOSPACK) 4 mg Tablets, Dose Pack Follow package instructions 21 Tablet 4 4:53 PM [employer] 06/15/20 24 Active metFORMIN (GLUCOPHAGE XR) 750 mg Extended Release 24 hour tablet Take 1 tablet (750 mg) by mouth in the morning. Do not crush, chew, or split. 90 Tablet 1 08/22/19 25 Active tirzepatide (Mounjaro) 5 mg/0.5 mL Pen Injector Inject 0.5 mL (5 mg) by subcutaneous injection every 7 days. 2 mL 6 5 7:23 PM CDT 08/22/19 25 Active progesterone micronized (PROMETRIUM) 100 mg Capsule Take 2 Capsules (200 mg) by mouth daily in the morning; off 7 days; repeat cycle. 60 Capsule 2 5 7:35 PM CDT 10/10/19 25 Active estradiol-nor ethindrone Acet (Activella) 1-0.5 mg tablet Take 1 Tablet by mouth daily. 84 Tablet 3 10/17/19 25 Active EPINEPHrine (EPIPEN) 0.3 mg/0.3 mL Auto-Injector Inject into anterior-latera l thigh as needed for anaphylaxis. Call 911 immediately after injection. 2 Each 4 7:10 PM CDT 12/01/19 24 025 Discontinued progesterone micronized (PROMETRIUM) 100 mg Capsule Take 2 Capsules (200 mg) by mouth daily in the morning. Off for 7 days; repeat cycle. 60 Capsule 5 12:29 PM [employer] 07/18/19 25 025 Discontinued(R eorder) clindamycin HCL (CLEOCIN) 300 mg Capsule Take 1 Capsule (300 mg) by mouth 3 times daily for 7 days. 21 Capsule 5 2:02 PM CDT 09/22/19 025 Encounters Date Type Department Care Team Description 09/20/2024 External Device Data [facility] ABSTRACTION Provider, Abstract 09/09/2024 External Device Data [facility]CTION Provider, Abstract 09/08/2024 External Device Data [facility]CTION Provider, Abstract 09/06/2024 External Device Data [facility]CTION Provider, Abstract 08/23/2024 External Device Data [facility]CTION Provider, Abstract 07/27/2024 External Device Data [facility]STRACTION Provider, [...] (1 of 3 - 19+ 3-dose series) 07/1995 HPV/Cotest (21-29) 1997 CERVICAL CANCER SCREENING 2006 HPV/Cotest (30-65) 2006 PAP SMEAR 2006 BREAST CANCER SCREENING 2016 COLORECTAL SCREENING 2021 Colorectal Cancer Screening 2021 FIT-DNA Q 3 years 2021 FIT/FOBT Q 1 year 2021 Flex Sig/CT Colonography Q 5 years 2021 INFLUENZA VACCINE (#1) 2024 [place] [address] [employer] (INTERNAL) [facility] RX [employer] Commercial
[2024-10-17 07:28] LABS: FSH 16.9 mIU/mL
== END 2024-10-16 10:27 | disposition home or self-care (01) ==
PROVIDERS: Visit Provider Student in an Organized Health Care Education/Training Program
DX: N93.9 Abnormal uterine and vaginal bleeding, unspecified (principal)
CPT/HCPCS: 36415; 82670; 83001

== ENCOUNTER 2024-11-13 11:23 | Emergency (ER) | payer OTHER, SELFPAY ==
[2024-11-13 11:35] VITALS: BP 115/75; PULSE 62; RESP 16; TEMP 36.3; O2SAT 100
--- NOTE | 2024-11-13 12:01 | ED.HEATRA ---
HPI - Head Injury General Chief complaint: Head Injury Stated complaint: HEAD INJURY Time Seen by Provider: 11/13/24 11:28 Source: patient and RN notes reviewed Mode of arrival: ambulatory Limitations: no limitations History of Present Illness HPI Narrative: 49 yo female with hx DM presented for c/o dizziness following a head injury yesterday while at work. Dizziness is described as room spinning and on a boat. States she struck her head on a metal railing when standing up. Denies LOC. Endorses Striking the back of the head on the left lower side, and has pain in the right neck with decreased ROM to the neck and pain into the right arm. Also reports left index finger tingling, light sensitivity, and feels like she is not comprehending adequately. Denies nausea, vomiting, or lethargy. Has not taken anything for pain. Related Data Home Medications ?Medication ?Instructions ?Recorded ?Confirmed ?Last Taken ?Type levothyroxine 125 mcg tablet 125 mcg PO DAILY 06/22/24 11/13/24 Unknown History (Synthroid) metformin 750 mg tablet,extended 750 mg PO DAILY 06/22/24 11/13/24 Unknown History release 24 hr tirzepatide 5 mg/0.5 mL 5 mg subcut WEEKLY 06/22/24 11/13/24 Unknown History subcutaneous pen injector (Mounjaro) Allergies Allergy/AdvReac Type Severity Reaction Status Date / Time Penicillins Allergy Intermediate Nausea and Verified 11/13/24 11:39 Vomiting amoxicillin Allergy Mild Hives Verified 11/13/24 11:39 doxycycline Allergy Mild Hives Verified 11/13/24 11:39 nitrofurantoin (From Allergy Mild Hives Verified 11/13/24 11:39 Macrobid) tetracycline Allergy Mild Hives Verified 11/13/24 11:39 diazepam (From Valium) AdvReac Intermediate Difficulty Verified 11/13/24 11:39 Breathing Review of Systems Review of Systems: CONSTITUTIONAL: Denies body aches, fever, chills, or sweats. EYES: reports light sensitivity denies visual changes, redness, or discharge. ENT: Denies rhinorrhea, congestion CARDIOVASCULAR: Denies chest pain, palpitations, or edema. RESPIRATORY: Denies cough or dyspnea. GASTROINTESTINAL: Denies abdominal pain, nausea, vomiting, or diarrhea. SKIN: Denies wounds. MUSCULOSKELETAL: Denies back pain, joint pain, or myalgia. NEUROLOGIC: Endorses headache, dizziness All systems reviewed & are unremarkable except as noted in HPI and below PMFSH Past Medical History Medical History (Updated 11/13/24 @ 12:12 by Joya Wright APRN) Screening mammogram for breast cancer Encounter for removal of intrauterine contraceptive device Abnormal uterine bleeding (AUB) Nonalcoholic fatty liver disease Diabetes Surgical History Surgical History History of cataract surgery H/O thyroidectomy Hx laparoscopic cholecystectomy Family History Family History Father Heart disease Diabetes mellitus Grandparent Diabetes mellitus Other Breast cancer Carcinoma of colon Social History Social History Smoking status: Never smoker Alcohol intake: current Alcohol use details: rare Substance use: never Substance use type: does not use Do You Feel Safe in your Home?: Yes Lack of Transportation: No Current Housing: I Have Housing Concerned About Future Housing: No Difficulty Paying Gas/Electric Bills: No Difficulty Paying for Meds: No Currently Unemployed: No Education: Master's Degree or Higher Difficulty w/ Childcare or Family Care: No Living arrangements: with family Occupation/Education: occupation Gender identity (if verbalized by the patient): Female Comments At time of signature, I have reviewed and agree with nursing past medical, surgical, social and family history unless otherwise noted. Please see nursing chart for further information. There is no relevant family history pertinent to the presenting complaint Exam Narrative: GENERAL: Well-appearing, well-nourished HEAD: Normocephalic, atraumatic. Tender to left lower occipital area. EYES: PERRLA, EOMI. ENT: Mucous membranes pink and moist. No rhinorrhea. TMs normal bilaterally. NECK: Decreased ROM to the neck turning head to right. CHEST: No respiratory distress. Clear to auscultation. HEART: Regular rate and rhythm. No murmur appreciated. Normal peripheral pulses. ABDOMEN: Soft, nontender, nondistended, normal active bowel sounds. EXTREMITIES: Normal range of motion. No edema. SKIN: Warm, dry, no rash. Capillary refill normal. Normal skin turgor. NEURO:No focal deficits. Alert and oriented x3. EOMs intact without nystagmus. No facial droop/asymmetry noted bilaterally. Grimace intact. Intact sensation in face. Hearing intact bilaterally. Shoulder shrug intact. Strength 5/5 bilateral upper extremities. Strength 5/5 bilateral lower extremities. Ambulatory with holding on for support. PSYCH: Appears anxious. Course Course Emergency Course: Patient is aware of diagnosis, understands and agrees to treatment plan. Anticipatory guidance given. Patient agrees to follow-up as directed and is aware of reasons to seek care at the emergency department. Portions of this record may have been created with voice recognition software Level of Care: Express Care Visit Vital Signs Vital signs: Vital Signs Temperature 97.3 F L 11/13/24 11:35 Pulse Rate 62 11/13/24 11:35 Respiratory Rate 16 11/13/24 11:35 Blood Pressure 115/75 11/13/24 11:35 Pulse Oximetry 100 11/13/24 11:35 Temperature 97.3 F L 11/13/24 11:35 Pulse Rate 62 11/13/24 11:35 Respiratory Rate 16 11/13/24 11:35 Blood Pressure 115/75 11/13/24 11:35 Pulse Oximetry 100 11/13/24 11:35 Transfer Transfered to: [place] Transportation: Other (private vehicle) Transfer rationale: Pt is agreeable to transfer. Requests transfer to [facility] via private vehicle. Risks of transportation reviewed with pt including injury, worsening of condition and . v/u. son will be driving pt; Report called to hospital, spoke with Trista Major NP, accepting physician. Pt is in stable condition at time of transfer. Advised to remain NPO and go directly to the hospital. MDM - Head Injury MDM Narrative Medical decision making narrative: Pt with signs of concussion after head injury yesterday at work. No open wounds noted. Pt reports significant dizziness and would like further eval. Requesting [facility]. Differential Diagnosis Differential diagnosis: Likely concussion without loss of consciousness, epidural hematoma, closed head injury, subarachnoid hematoma and subdural hematoma Discharge Plan Discharge Clinical Impression: Dizziness Patient Disposition: Acute Care Hospital Condition: Stable Patient Language: Salvadorean Prescriptions: No Action levothyroxine [Synthroid] 125 mcg tablet 125 mcg PO DAILY Mounjaro 5 mg/0.5 mL pen injector 5 mg subcut WEEKLY metformin 750 mg tablet extended release 24 hr 750 mg PO DAILY estradiol-norethindrone acet [Activella] 1-0.5 mg tablet 1 tablet PO DAILY Qty: 84 3RF Follow-up/Referrals: Dev,Dakota [Other] Time of Disposition: 12:11 Quality Devin Coma Scale Verbal: Oriented and Alert Motor: Follows Commands Acute Stroke Pre-Treatment Evaluation Acute Ischemic Stroke Pretreatment Evaluation: Acute Ischemic Stroke Pre-Treatment Evaluation Inclusion Criteria (must answer yes to questions 1 and 2) 1. Age 18 Years Or Older: No 2. Onset Of Stroke Symptoms Well Established To Be Less Than 3 Hours: No 3. Clinical Diagnosis Of Ischemic Stroke Causing Measureable Neurological Deficit And A Non-Contrast Head CT Showing NO Hemorrage: No Contraindications (0-3 Hours) 5. Stroke Or Severe Head Trauma Within Past 3 Months: No 6. Known History Of Intracranial Hemorrage: No 7. Symptoms Or Clinical Presentation Suggestion Of Subarachnoid hemorrhage: No 8. Gastrointestinal Or Urinary Tract hemorrhage Within 21 Days: No 9. Prothrombin Time (TP) Greater Than 15 Seconds or An INR Greater Than 1.7 Or An Elevated Activated Partial Throboplastin Time (aPTT): No 10. Platelet Count <100,000/ml: No 11. Glucose Lower Than 50mg/dl Or Greater than 400mg/dl: No 12. Seizure At Onset Stroke: No 13. Acute Myocardial Infarction Or Post Myocardial Infarction Pericarditis: No 14. Arterial Puncture At A Non-Compressible Site, Biopsy of Internal Organ, Within The Preceding 7 Days: No 15. Major Surgery Or Serious Trauma (Besides Head) In The Previous 14 Days: No 16. Uncontrolled Or Sustained SBP (systolic>185 mmHg) or DBP (diastolic>110 mmHg) Or Requiring Aggressive Treatment To Lower: No 17. : No Contraindications (3-4.5 Hours) 1. Age Less Than 18 or Greater Than 80 years: No 2. Severe Stroke Assessed Clinically (NIHSS Score Greater Than 25): No 3. Combination Or Previous Stroke Or Diabetes Mellitus: No 4. Symptoms Minor Or Rapidly Improving: No
== END 2024-11-13 12:05 | disposition short-term general hospital (02) ==
PROVIDERS: Emergency Provider Nurse Practitioner Family
DX: R42 Dizziness and giddiness (principal); E11.9 Type 2 diabetes mellitus without complications; Z79.84 Long term (current) use of oral hypoglycemic drugs; Z79.85 Long-term (current) use of injectable non-insulin antidiabetic drugs; K76.0 Fatty (change of) liver, not elsewhere classified
CPT/HCPCS: 99213; G0463

== ENCOUNTER 2024-11-13 12:24 | Emergency (ER) | payer OTHER, SELFPAY ==
--- NOTE | ~2024-11-13 | CT_ITS ---
CT brain wo con Ordering provider: Madhav Grant MD History: 49 years Female with . head injury . Comparison: None. Technique: CT of the head without contrast. The dose-length product was 529.67 mGy-cm. FINDINGS: BRAIN PARENCHYMA AND CSF SPACES: No midline shift, mass effect or hemorrhage. The brain parenchyma a nd CSF spaces are otherwise normal. VISUALIZED PARANASAL SINUSES: Well aerated. MASTOIDS: Well aerated. BONES: The bones appear intact. SOFT TISSUES: Visualized nasopharynx is normal. Superficial soft tissues are normal. IMPRESSION: No acute intracranial findings. Reviewed, dictated and finalized at location A.
[2024-11-13 12:25] VITALS: BP 113/70; PULSE 64; RESP 16; TEMP 36.5; O2SAT 100
--- OUTSIDE RECORDS SUMMARY | 2024-11-13 12:27 | XMS_ITS | Continuity of Care Document ---
Author Organization [facility] Address [address] [facility] [place] [address] Phone Care Team Providers Care Installation Helper Name Role Phone Ebony Couch MD Unavailable [...] Encounter Office/outpat ient visit, est, prob foc [facility], [address] [place] [address], [id number], tel:[phone] [facility] DOI 05-04-2012 Recheck left ankle and cuboid fracture (chief complaint) Fx closed fibula NOSFx closed foot, cuboid Iza B. [address] [place] [address], [facility], . tel:[phone] Office/outpat ient visit, est, prob [facility], [address] [place] [address], [id number], tel:[phone] [facility] Fx closed fibula NOSFx closed foot, cuboidAfter care, healing traumatic fx, lower leg Couch B. [address] [place] [address], [facility], . tel:[phone] Office/outpat ient visit, est, prob [facility], [address] [place] [address], [id number], [phone] [facility] Fx closed fibula NOSFx closed foot, cuboid Couch B. [address] [place] [address], [facility], [place]. tel:[phone] Office/outpat ient visit, est, prob [facility], [address] [place] [address], [id number], tel:[phone] [facility] recheck left ankle (chief complaint) Fx closed foot, cuboidFx closed fibula NOS Couch B. [address] [place] [address], [facility], [place]. tel:[phone] Office/outpat ient visit, new, [facility], [address] [place] [address], [id number], tel:[phone] [facility] Fx closed fibula NOSFx closed foot, cuboid Iza Barkley [address] [place], [address], [place]. tel:[phone] Family History Family Member Type Diagnosis Age At Onset No Information Payers Payer name Insurance type Covered democrat ID Tatiana sexton(s) IVORY Frazier [id number] Social History Type Description Quantity Date Captured [...] may place in kristin es for support Take medications with food Wean out of boot int o regular shoe with active ankle brace Ice affected area Ok to take over the counter medi cations Follow work restrictions as note d start weight bearing in boot as tolerated. Don't have to sleep in the boot if preferred. Follow work restrictions as note d Continue boot and nonweightbeari ng Follow work restrictions as note d Weight bearing status: non weigh t bearing in boot Reviewed medications Wear brace as instructed Follow work restrictions as note d Use assistance devic e support (cane, crutches, walker) Medication instructi ons were given regarding Take one Aspirin tablet daily.. Rest affected area Assessments Type Assessment Date No Information Patient Care Teams Name Effective Dates (start - stop) Status Members No Information
--- OUTSIDE RECORDS SUMMARY | 2024-11-13 12:27 | XMS_ITS | Encounter Summary ---
Author Organization [facility] Address [address] [place] [address] Care Team Providers Care Information Technology Manager Name Role Phone No, Physician Primary Care Provider [phone] Unknown, Notinfile Primary Care Provider Unavail able Festus Grigsby MD Primary Care Provider [phone] Dakota Méndez MD Primary Care Provider [phone] Encounter Details Date Type Department Care Team (Late st Contact Info) Description 12/15/2023 Telephone [facility] [address] [address] Festus Grigsby MD [address] [place] [address] Social History Tobacco Use Types Packs/Day [...] on filedocumented in this encounter Care Teams Information Technology Manager Relationship Specialty Start Date End Date No, Physician PCP - General 12/20/22 01/13/24 Unknown, Notinfile PCP - General 01/17/24 01/22/24 Festus Grigsby MD [address] [place] [address] PCP - General Family Medicine 01/23/24 02/08/24 Dakota Méndez MD [facility] [place] [address] PCP - General Family Medicine 02/10/24 documented as of this encounter
--- OUTSIDE RECORDS SUMMARY | 2024-11-13 12:27 | XMS_ITS | Referral Summary ---
Author Organization [address] lto Address [address] [facility] [place] [address] Care Team Providers Care Punch Hand Name Role Phone Dakota Méndez MD Primary Care Provider [phone] Allergies Active Allergy Reactions Criticality Noted Date [...] with the highest being >300. (Sent to [employer] and pulled from [employer] recs) Her A1C is in the 6%. [...] Comments Blood Pressure 115/75 06/03/2024 1:41 PM PUBLIC RELATIONS CONSULTANT Pulse 71 06/03/2024 1:41 PM PUBLIC RELATIONS CONSULTANT Temperature 36.3 C (97.4 F) 06/03/2024 1:41 PM PUBLIC RELATIONS CONSULTANT Respiratory Rate 18 06/03/2024 1:41 PM PUBLIC RELATIONS CONSULTANT Oxygen Saturation 100% 06/03/2024 1:41 PM PUBLIC RELATIONS CONSULTANT Inhaled Oxygen Concentration - - Weight 68 kg (150 lb) 06/03/2024 1:41 PM PUBLIC RELATIONS CONSULTANT Height 172.7 cm (5' 8 ) 06/03/2024 1:41 PM PUBLIC RELATIONS CONSULTANT Body Mass Index 22.81 06/03/2024 1:41 PM PUBLIC RELATIONS CONSULTANT Plan of Treatment Not on file Procedures Procedure Name Priority Date/Time Associated Diagnosis Comments EGFR STAT 06/03/2024 2:12 PM PUBLIC RELATIONS CONSULTANT from Last 3 Months or Most Recently Relevant to Health Maintenance Results * eGFR (06/03/2024 2:12 PM PUBLIC RELATIONS CONSULTANT) eGFR 72 >=60 mL/min/1. 73 m2 Comment: [...] of Race in Diagnosing Kidney Disease, JASN 202). The CKD-EPI equation should not be used for patients with unstable renal function and has not been validated in children and those over 70. Current interpretive data was last reviewed 2021. Blood 06/03/2024 2:12 PM PUBLIC RELATIONS CONSULTANT 06/03/2024 2:18 PM PUBLIC RELATIONS CONSULTANT us Blu Wan MD LAB BLOOD ORDERABLES Final Res ult [place] 1 [facility] [place] [address] from Last 3 Months or Most Recently Relevant to Health Maintenance Insurance [facility] [place] [address] [facility] Advance Directives For more information, please contact: [phone] * Full Code (Latest Code Status on File) Date Activated Date Inactivated Comments 05/26/2023 4:30 PM 05/26/2023 9:10 PM Care Teams Punch Hand Relationship Specialty Start Date End Date Dakota Méndez MD [address] [place] [address] PCP - General Family Medicine 02/10/24
--- OUTSIDE RECORDS SUMMARY | 2024-11-13 12:27 | XMS_ITS | Clinical Summary ---
Author Organization [address] lt Address [address] [facility] [address] [facility] [place] [place] [address] Care Team Providers Care Liquor Bridge Operator Helper Name Role Phone Dakota Méndez MD Primary Care Provider Allergies Active Allergy Reactions Criticality Noted Date [...] with the highest being >300. (Sent to [email or web address] and pulled from [employer] recs) Her A1C is in the 6%. [...] Comments Blood Pressure 115/75 06/03/2024 1:41 PM STUMPER FELLER Pulse 71 06/03/2024 1:41 PM STUMPER FELLER Temperature 36.3 C (97.4 F) 06/03/2024 1:41 PM STUMPER FELLER Respiratory Rate 18 06/03/2024 1:41 PM STUMPER FELLER Oxygen Saturation 100% 06/03/2024 1:41 PM STUMPER FELLER Inhaled Oxygen Concentration - - Weight 68 kg (150 lb) 06/03/2024 1:41 PM STUMPER FELLER Height 172.7 cm (5' 8 ) 06/03/2024 1:41 PM STUMPER FELLER Body Mass Index 22.81 06/03/2024 1:41 PM STUMPER FELLER Plan of Treatment Health Maintenance Due Date [...] DTaP/Tdap/Td Vaccine (1 - Tdap) 07/05/2020 0 Lipid Panel 09/23/2024 09/24/2023 Influenza Vaccine (Season Ended) 2025 06/23/20 18 eGFR 06/03/2025 06/03/2024, 07/2 07/2023, 05/26/2023 Procedures Procedure Name Priority Date/Time Associated Diagnosis Comments EGFR STAT 06/03/2024 2:12 PM STUMPER FELLER from Last 3 Months or Most Recently Relevant to Health Maintenance Results * eGFR (06/03/2024 2:12 PM STUMPER FELLER) eGFR 72 >=60 mL/min/1. 73 m2 Comment: [...] last reviewed 2021. Blood 06/03/2024 2:12 PM STUMPER FELLER 06/03/2024 2:18 PM STUMPER FELLER Blu Wan MD LAB BLOOD ORDERABLES Final Res ult SOL [facility] 1 [facility] Department [place] [address] from Last 3 Months or Most Recently Relevant to [place] [address] [facility] HMO/PPO Address: [address] [address] [place] [address] [facility] HMO/PPO Address: [address] [place] [address] Advance Directives For more information, please contact: [phone] * Full Code (Latest Code Status on File) Date Activated Date Inactivated Comments 05/26/2023 4:30 PM 05/26/2023 9:10 PM Care Teams Liquor Bridge Operator Helper Relationship Specialty Start Date End Date Dakota Méndez MD [facility] [place] [address] PCP - General Family Medicine 02/10/24
--- OUTSIDE RECORDS SUMMARY | 2024-11-13 12:27 | XMS_ITS | Clinical Summary ---
Author Organization [facility] Address [address] [place] [address] Care Team Providers Care President Financial Institution Name Role Phone Unavailable Primary Care Provider [...] Tablet 12/20/2022 12:24 PM CDT 3 Active semaglutide (Ozempic) 1 mg/dose (4 mg/3 [...] 5 04/24/2024 11:54 AM CDT 4 Active tirzepatide (Mounjaro) 5 mg/0.5 mL Pen Injector Inject 5 mg under the skin every 7 (seven) days. 2 mL 5 07/24/2024 12:29 PM CONVENTIONAL UNDERWRITER 4 Active Synthroid 125 mcg tablet Take 1 Tablet (125 mcg) by mouth daily in the morning. 90 Tablet 3 08/18/2024 3:32 PM CONVENTIONAL UNDERWRITER 4 Active azithromycin (ZITHROMAX) 250 mg tablet Take 2 tablets on day 1 followed by 1 tablet daily on days 2-5. 6 Tablet 06/15/2024 10:04 AM CONVENTIONAL UNDERWRITER 4 Active methylPREDNISo lone (MEDROL DOSPACK) 4 mg Tablets, Dose Pack Follow package instructions 21 Tablet 06/15/2024 4:53 PM CONVENTIONAL UNDERWRITER 4 Active metFORMIN (GLUCOPHAGE XR) 750 mg Extended Release 24 hour tablet Take 1 tablet (750 mg) by mouth in the morning. Do not crush, chew, or split. 90 Tablet 1 11/02/2024 2:55 PM CDT 5 Active tirzepatide (Mounjaro) 5 mg/0.5 mL Pen Injector Inject 0.5 mL (5 mg) by subcutaneous injection every 7 days. 2 mL 6 11/02/2024 2:55 PM CDT 5 Active progesterone micronized (PROMETRIUM) 100 mg Capsule Take 2 Capsules (200 mg) by mouth daily in the morning; off 7 days; repeat cycle. 60 Capsule 2 10/09/2024 7:35 PM CDT 5 Active estradiol-nore thindrone Acet (Activella) 1-0.5 mg tablet Take 1 Tablet by mouth daily. 84 Tablet 3 10/25/2024 10:42 AM CDT 5 Active estradiol-nore thindrone Acet 1-0.5 mg tablet Take 1 Tablet by mouth daily. 84 Tablet 3 5 Active clindamycin HCL (CLEOCIN) 300 mg Capsule Take 1 Capsule (300 mg) by mouth 3 times daily for 10 days. 30 Capsule 11/02/2024 2:55 PM CDT 5 11/13/19 25 Encounters Date Type Department Care Team Description 10/17/2024 External Device Data [facility] ABSTRACTION Provider, Abstract 09/20/2024 External Device Data [facility] ABSTRACTION Provider, [...] years 2021 INFLUENZA VACCINE (#1) 2024 Insurance [employer] (INTERNAL) [facility] [employer] Commercial
[2024-11-13 12:37] VITALS: BP 116/77; PULSE 65; RESP 10; O2SAT 100
--- NOTE | 2024-11-13 14:13 | ED.GENADULT ---
HPI - General Adult General Chief complaint: Head Injury Stated complaint: head injury, dizziness Time Seen by Provider: 11/13/24 13:28 History of Present Illness HPI narrative: 49-year-old female presenting to the emergency department for evaluation for headache after a head injury. Patient states that she struck her head on a beam at work. Patient denies any loss of consciousness. Patient states she did have some associated headache lightheaded dizziness. Related Data Home Medications ?Medication ?Instructions ?Recorded ?Confirmed ?Last Taken ?Type metformin 750 mg tablet,extended 750 mg PO DAILY 06/22/24 11/21/24 Unknown History release 24 hr tirzepatide 5 mg/0.5 mL 5 mg subcut WEEKLY 06/22/24 11/21/24 Unknown History subcutaneous pen injector (Mounjaro) levothyroxine 125 mcg tablet 137 mcg PO DAILY 11/21/24 11/21/24 Unknown History (Synthroid) Allergies Allergy/AdvReac Type Severity Reaction Status Date / Time Penicillins Allergy Intermediate Nausea and Verified 11/21/24 08:28 Vomiting amoxicillin Allergy Mild Hives Verified 11/21/24 08:28 doxycycline Allergy Mild Hives Verified 11/21/24 08:28 nitrofurantoin (From Allergy Mild Hives Verified 11/21/24 08:28 Macrobid) tetracycline Allergy Mild Hives Verified 11/21/24 08:28 diazepam (From Valium) AdvReac Intermediate Difficulty Verified 11/21/24 08:28 Breathing Review of Systems Review of Systems: All systems reviewed & are unremarkable except as noted in HPI and below PMFSH Past Medical History Medical History Screening mammogram for breast cancer Encounter for removal of intrauterine contraceptive device Abnormal uterine bleeding (AUB) Nonalcoholic fatty liver disease Diabetes Surgical History Surgical History History of cataract surgery H/O thyroidectomy Hx laparoscopic cholecystectomy Family History Family History Father Heart disease Diabetes mellitus Grandparent Diabetes mellitus Other Breast cancer Carcinoma of colon Social History Social History Smoking status: Never smoker Alcohol intake: current Alcohol use details: rare Substance use: never Substance use type: does not use Do You Feel Safe in your Home?: Yes Lack of Transportation: No Current Housing: I Have Housing Concerned About Future Housing: No Difficulty Paying Gas/Electric Bills: No Difficulty Paying for Meds: No Currently Unemployed: No Education: Master's Degree or Higher Difficulty w/ Childcare or Family Care: No Living arrangements: with family Occupation/Education: occupation Gender identity (if verbalized by the patient): Female Exam Narrative: APPEARANCE: Well appearing, no pain, no distress, well-nourished. HEAD: normocephalic, atraumatic. EYES: PERRLA/EOMI, conjunctivae clear. NOSE: Normal no drainage EARS:TMS clear with good light reflex. THROAT: Pharynx clear, no exudate. NECK: Supple. No adenopathy, no masses. RESPIRATORY: Airway patent, respirations nonlabored. Clear to auscultation bilaterally, no rales, rhonchi, wheezing. CARDIOVASCULAR: Regular rate and rhythm without murmurs rubs or gallops. ABDOMINAL: Soft, nontender, nondistended, normal bowel sounds MUSCULOSKELETAL: Moves all extremities. Strength/ROM intact, No edema, No calf tenderness. NEURO: Alert. Cranial nerves II through XII intact. Good gait. Good coordination SKIN: Warm, dry. Normal Color Course Vital Signs Vital signs: Vital Signs Temperature 97.7 F 11/13/24 12:25 Pulse Rate 64 11/13/24 12:25 Respiratory Rate 16 11/13/24 12:25 Blood Pressure 113/70 11/13/24 12:25 Pulse Oximetry 100 11/13/24 12:25 Oxygen Delivery Room Air 11/13/24 12:25 Temperature 97.7 F 11/13/24 12:25 Pulse Rate 65 11/13/24 12:37 Respiratory Rate 10 L 11/13/24 12:37 Blood Pressure 116/77 11/13/24 12:37 Pulse Oximetry 100 11/13/24 12:37 Oxygen Delivery Room Air 11/13/24 12:25 Medical Decision Making MDM Narrative Medical decision making narrative: 49-year-old female present to the emergency department for evaluation for a head injury. Head CT was negative for acute intracranial injury. Patient declined any medications for pain control. Patient has a normal comprehensive neuro exam. No acute findings on CT scan. Patient's symptoms are consistent with suspected concussion, who concern for subdural hematoma, subarachnoid hemorrhage. Differential Diagnosis Differential Diagnosis: TIA, CVA, subarachnoid hemorrhage, subdural hematoma, concussion, post concussive syndrome Vital Signs Vital Signs: Vital Signs Temperature 97.7 F 11/13/24 12:25 Pulse Rate 64 11/13/24 12:25 Respiratory Rate 16 11/13/24 12:25 Blood Pressure 113/70 11/13/24 12:25 Pulse Oximetry 100 11/13/24 12:25 Oxygen Delivery Room Air 11/13/24 12:25 Temperature 97.7 F 11/13/24 12:25 Pulse Rate 65 11/13/24 12:37 Respiratory Rate 10 L 11/13/24 12:37 Blood Pressure 116/77 11/13/24 12:37 Pulse Oximetry 100 11/13/24 12:37 Oxygen Delivery Room Air 11/13/24 12:25 Discharge Plan Discharge Clinical Impression: Head injury Patient Disposition: Home Condition: Stable Instructions: Antibiotic Form, Head Injury (ED) Additional Instructions: Tylenol and ibuprofen for pain control. Have close follow-up with your primary care physician. Patient Language: Spanish Prescriptions: No Action norethindrone-e.estradiol-iron [ (28)] 1.5 mg-30 mcg (21)/75 mg (7) tablet 1 tablet PO DAILY Qty: 168 2RF Mounjaro 5 mg/0.5 mL pen injector 5 mg subcut WEEKLY metformin 750 mg tablet extended release 24 hr 750 mg PO DAILY levothyroxine [Synthroid] 125 mcg tablet 137 mcg PO DAILY metoclopramide HCl 10 mg tablet 10 mg PO Q6H PRN (Reason: nausea and vomiting) Qty: 14 0RF meclizine 25 mg tablet 25 mg PO BID PRN (Reason: dizziness) Qty: 14 0RF Follow-up/Referrals: PHYSICIAN NOT ON STAFF,NONSTAFF [Non-Staff] -
--- OUTSIDE RECORDS SUMMARY | 2024-11-13 14:25 | XMS_ITS | Referral Summary ---
Author Organization [address] lto Address [address] [facility] [address] [facility] [place] [facility] [place] [address] Care Team Providers Care Rotary Slicing Machine Operator Name Role Phone Dakota Méndez MD Primary Care Provider [phone] Allergies Active Allergy Reactions Criticality Noted Date [...] with the highest being >300. (Sent to [employer] and pulled from [employer] recs) Her A1C is in the 6%. [...] Comments Blood Pressure 115/75 06/03/2024 1:41 PM HAIRMASTERS MANAGER Pulse 71 06/03/2024 1:41 PM HAIRMASTERS MANAGER Temperature 36.3 C (97.4 F) 06/03/2024 1:41 PM HAIRMASTERS MANAGER Respiratory Rate 18 06/03/2024 1:41 PM HAIRMASTERS MANAGER Oxygen Saturation 100% 06/03/2024 1:41 PM HAIRMASTERS MANAGER Inhaled Oxygen Concentration - - Weight 68 kg (150 lb) 06/03/2024 1:41 PM HAIRMASTERS MANAGER Height 172.7 cm (5' 8 ) 06/03/2024 1:41 PM HAIRMASTERS MANAGER Body Mass Index 22.81 06/03/2024 1:41 PM HAIRMASTERS MANAGER Plan of Treatment Not on file Procedures Procedure Name Priority Date/Time Associated Diagnosis Comments EGFR STAT 06/03/2024 2:12 PM HAIRMASTERS MANAGER from Last 3 Months or Most Recently Relevant to Health Maintenance Results * eGFR (06/03/2024 2:12 PM HAIRMASTERS MANAGER) eGFR 72 >=60 mL/min/1. 73 m2 Comment: [...] last reviewed 2021. Blood 06/03/2024 2:12 PM HAIRMASTERS MANAGER 06/03/2024 2:18 PM HAIRMASTERS MANAGER us Blu Wan MD LAB BLOOD ORDERABLES Final Res ult [place] 1 [facility] Department [place] [address] from Last 3 Months or Most Recently Relevant to Health Maintenance Insurance [facility] [place] [address] [facility] Advance Directives For more information, please contact: [phone] * Full Code (Latest Code Status on File) Date Activated Date Inactivated Comments 05/26/2023 4:30 PM 05/26/2023 9:10 PM Care Teams Rotary Slicing Machine Operator Relationship Specialty Start Date End Date Dakota Méndez MD [address] [place] [address] PCP - General Family Medicine 02/10/24
--- OUTSIDE RECORDS SUMMARY | 2024-11-13 14:25 | XMS_ITS | Encounter Summary ---
Author Organization [facility] Address [address] [place] [address] Care Team Providers Care Online Education Manager Name Role Phone No, Physician Primary Care Provider [phone] Unknown, Notinfile Primary Care Provider Unavail able Festus Grigsby MD Primary Care Provider [phone] Dakota Méndez MD Primary Care Provider [phone] Encounter Details Date Type Department Care Team (Late st Contact Info) Description 12/15/2023 Telephone Family Physicians [address] [address] Festus Grigsby MD [address] [place] [address] Social History Tobacco Use Types Packs/Day [...] on filedocumented in this encounter Care Teams Online Education Manager Relationship Specialty Start Date End Date No, Physician PCP - General 12/20/22 01/13/24 Unknown, Notinfile PCP - General 01/17/24 01/22/24 Festus Grigsby MD [address] [place] [address] PCP - General Family Medicine 01/23/24 02/08/24 Dakota Méndez MD [facility] [place] [address] PCP - General Family Medicine 02/10/24 documented as of this encounter
--- OUTSIDE RECORDS SUMMARY | 2024-11-13 14:26 | XMS_ITS | Clinical Summary ---
Author Organization [address] lt Address [address] [facility] [address] [facility] [place] [address] Care Team Providers Care Drop Board Man Name Role Phone Dakota Méndez MD Primary [...] with the highest being >300. (Sent to [employer] and pulled from [employer] recs) Her A1C is in the 6%. [...] Comments Blood Pressure 115/75 06/03/2024 1:41 PM CRUSHER Pulse 71 06/03/2024 1:41 PM CRUSHER Temperature 36.3 C (97.4 F) 06/03/2024 1:41 PM CRUSHER Respiratory Rate 18 06/03/2024 1:41 PM CRUSHER Oxygen Saturation 100% 06/03/2024 1:41 PM CRUSHER Inhaled Oxygen Concentration - - Weight 68 kg (150 lb) 06/03/2024 1:41 PM CRUSHER Height 172.7 cm (5' 8 ) 06/03/2024 1:41 PM CRUSHER Body Mass Index 22.81 06/03/2024 1:41 PM CRUSHER Plan of Treatment Health Maintenance Due Date [...] Diagnosis Comments EGFR STAT 06/03/2024 2:12 PM CRUSHER from Last 3 Months or Most Recently Relevant to Health Maintenance Results * eGFR (06/03/2024 2:12 PM CRUSHER) eGFR 72 >=60 mL/min/1. 73 m2 Comment: [...] last reviewed 2021. Blood 06/03/2024 2:12 PM CRUSHER 06/03/2024 2:18 PM CRUSHER Blu Wan MD LAB BLOOD ORDERABLES Final Res ult SOL [facility] [place] 1 [facility] Department [place] [address] from Last 3 Months or Most Recently Relevant to [place] [address] [facility] HMO/PPO Address: [address] [address] [place] [address] [facility] HMO/PPO Address: [address] [place] [phone] Advance Directives For more information, please contact: [phone] * Full Code (Latest Code Status on File) Date Activated Date Inactivated Comments 05/26/2023 4:30 PM 05/26/2023 9:10 PM Care Teams Drop Board Man Relationship Specialty Start Date End Date Dakota Méndez MD [facility] [place] [address] PCP - General Family Medicine 02/10/24
--- OUTSIDE RECORDS SUMMARY | 2024-11-13 14:26 | XMS_ITS | Continuity of Care Document ---
Author Organization [facility] Address [address] [facility] [place] [address] Phone Care Team Providers Care Orthoptist Name Role Phone Ebony Couch MD Unavailable [...] Encounter Office/outpat ient visit, est, prob foc [facility], [address] [place] [address], [id number], tel:[phone] [facility] DOI 05-04-2012 Recheck left ankle and cuboid fracture (chief complaint) Fx closed fibula NOSFx closed foot, cuboid Iza B. [address] [place] [address], [facility], . tel:[phone] Office/outpat ient visit, est, prob [facility], [address] [place] [address], [id number], tel:[phone] [facility] Fx closed fibula NOSFx closed foot, cuboidAfter care, healing traumatic fx, lower leg Couch B. [address] [place] [address], [facility], . tel:[phone] Office/outpat ient visit, est, prob [facility], [address] [place] [address], [id number], tel:[phone] [facility] Fx closed fibula NOSFx closed foot, cuboid Couch B. [address] [place] [address], [facility], [place]. tel:[phone] Office/outpat ient visit, est, prob [facility], [address] [place] [address], [id number], tel:[phone] [facility] recheck left ankle (chief complaint) Fx closed foot, cuboidFx closed fibula NOS Couch B. [address] [place] [address], [facility], [place]. tel:[phone] Office/outpat ient visit, new, [facility], [address] [place] [address], [id number], tel:[phone] [facility] Fx closed fibula NOSFx closed foot, cuboid Iza Bark[address] [place], [address], [place]. tel:[phone] Family History Family Member Type Diagnosis Age At Onset No Information Payers Payer name Insurance type Covered democrat ID Tatiana sexton(s) IVORY Frazier [id number] Social History Type Description Quantity Date Captured [...] status: non weigh t bearing in boot Use assistance devic e support (cane, crutches, walker) Medication instructi ons were given regarding Take one Aspirin tablet daily.. Rest affected area Reviewed medications Wear brace as instructed Follow work restrictions as note d Assessments Type Assessment Date No Information Patient Care Teams Name Effective Dates (start - stop) Status Members No Information
--- OUTSIDE RECORDS SUMMARY | 2024-11-13 14:26 | XMS_ITS | Clinical Summary ---
Author Organization [employer] [facility] Address [address] [place] [address] Care Team Providers Care Ed Physicians Name Role Phone Unavailable Primary Care Provider [...] days. 2 mL 5 07/24/2024 12:29 PM MEDICAL BILLING CODER 4 Active Synthroid 125 mcg tablet Take 1 Tablet (125 mcg) by mouth daily in the morning. 90 Tablet 3 08/18/2024 3:32 PM MEDICAL BILLING CODER 4 Active azithromycin (ZITHROMAX) 250 mg tablet Take 2 tablets on day 1 followed by 1 tablet daily on days 2-5. 6 Tablet 06/15/2024 10:04 AM MEDICAL BILLING CODER 4 Active methylPREDNISo lone (MEDROL DOSPACK) 4 mg Tablets, Dose Pack Follow package instructions 21 Tablet 06/15/2024 4:53 PM MEDICAL BILLING CODER 4 Active metFORMIN (GLUCOPHAGE XR) 750 mg [...]
== END 2024-11-13 14:29 | disposition home or self-care (01) ==
LOC: ANHED 14:21
PROVIDERS: Emergency Provider Emergency Medicine
DX: S09.90XA Unspecified injury of head, initial encounter (principal); E11.9 Type 2 diabetes mellitus without complications; E89.0 Postprocedural hypothyroidism; K76.0 Fatty (change of) liver, not elsewhere classified; Z98.49 Cataract extraction status, unspecified eye; Z90.49 Acquired absence of other specified parts of digestive tract; Z79.85 Long-term (current) use of injectable non-insulin antidiabetic drugs; Z79.84 Long term (current) use of oral hypoglycemic drugs; Z79.899 Other long term (current) drug therapy; W22.8XXA Striking against or struck by other objects, initial encounter
CPT/HCPCS: 70450; 99284

== ENCOUNTER 2024-11-15 09:07 | Emergency (ER) | payer OTHER, SELFPAY ==
[2024-11-15] VITALS (8 sets, daily range): BP systolic 103–144; BP diastolic 71–85; PULSE 61–74; RESP 14–18; TEMP 36.6; O2SAT 99–100
--- NOTE | ~2024-11-15 | XR_ITS ---
EXAMINATION: XR chest 2V DATE: 11/15/2024 09:57 INDICATION: Dizziness TECHNIQUE: AP and lateral views of the chest were obtained. COMPARISON: None FINDINGS: The lungs are clear with no focal airspace opacities, pulmonary edema, pleural effusion or pneumothor ax. The cardiomediastinal silhouette is normal. Cholecystectomy clips in right upper quadrant. Surgic al clips at the base of the neck suggesting prior thyroidectomy. Bilateral breast implants. Mild thor acic dextrocurvature. IMPRESSION: 1. No acute cardiopulmonary disease. Reviewed, dictated and finalized at location A.
--- NOTE | ~2024-11-15 | CT_ITS ---
EXAMINATION: CTA BRAIN/CAROTID DATE: 11/15/2024 11:58 INDICATION: Vertigo TECHNIQUE: Computed tomographic angiography (CTA) of the head and neck was performed with 100 mL Omni paque-350 intravenous contrast. Multiplanar reconstructions and maximum intensity projection 3D-recon structions of the carotid arteries and of the intracranial arteries were created by the technologist on a separate workstation. Precontrast CT of the head was also obtained. Automated exposure control and iterative reconstruction technique were employed.The dose-length product was 1433.16 mGy-cm. COMPARISON: None. FINDINGS: Carotid arteries: Aortic arch antegrade flow arising from the arch are normal caliber with no atherosclerotic plaque or dissection. There is no evident atherosclerotic plaque with 0% stenosis of the right and left caroti d bulbs relative to normal distal artery lumen diameter (NASCET criteria). Bilateral vertebral arteri es are codominant with no evident atherosclerotic plaque. Minimal biapical pleural-parenchymal scarri ng. Visualized superior mediastinum and cervical soft tissues are unremarkable. Moderate spondylosis at C5-C6. Otherwise mild cervical and upper thoracic spondylosis. Head: No acute intracranial hemorrhage, acute infarction or abnormal extra axial fluid collection. Ventricl es are normal and symmetric. No mass/mass effect. No abnormally enhancing brain lesions. Changes of b ilateral intraocular lens replacement. The orbits, paranasal sinuses and mastoid air cells are normal . Intracranial arteries Vertebral arteries are codominant. There is no hemodynamically significant stenosis in the vertebral, basilar and internal carotid arteries. Both A1 and P1 segments are patent. There is also a patent an terior communicating artery. There are no aneurysms identified. Cerebral arterial arborization appea rs symmetric. IMPRESSION: 1. 0% stenosis of the right and left carotid bulbs relative to normal distal artery lumen diameter (N ASCET criteria). 2. Normal head CT and cerebral CT angiogram with no acute intracranial process, thrombosis or aneurys m. Reviewed, dictated and finalized at location A. IMPRESSION: 1. 0% stenosis of the right and left carotid bulbs relative to normal distal ar sean lumen diameter (NASCET criteria). 2. Normal head CT and cerebral CT angiogram with no acute intracranial process, thrombosis or aneurysm.
--- OUTSIDE RECORDS SUMMARY | 2024-11-15 09:13 | XMS_ITS | Continuity of Care Document ---
Author Organization [facility] Address [address] [facility] [place] [address] Phone Care Team Providers Care Aoc Plans Intelligence Officer Chief Name Role Phone Ebony Couch MD Unavailable [...] Encounter Office/outpat ient visit, est, prob foc [facility], [address] [place] [address], [id number], [phone] [facility] Ortho DOI 05-04-2012 Recheck left ankle and cuboid fracture (chief complaint) Fx closed fibula NOSFx closed foot, cuboid Iza B. [address] [place] [address], [facility], . tel:[phone] Office/outpat ient visit, est, prob [facility], [address] [place] [address], [id number], [phone] [facility] Fx closed fibula NOSFx closed foot, cuboidAfter care, healing traumatic fx, lower leg Couch B. [address] [place] [address], [facility], . tel:[phone] Office/outpat ient visit, est, prob [facility], [address] [place] [address], [id number], [phone] [facility] Fx closed fibula NOSFx closed foot, cuboid Couch B. [address] [place] [address], [facility], [place]. tel:[phone] Office/outpat ient visit, est, prob [facility], [address] [place] [address], [id number], tel:[phone] [facility] recheck left ankle (chief complaint) Fx closed foot, cuboidFx closed fibula NOS Couch B. [address] [place] [address], [facility], [place]. tel:[phone] Office/outpat ient visit, new, [facility], [address] [place] [address], [id number], tel:[phone] [facility] Fx closed fibula NOSFx closed foot, cuboid Iza Barkley [address] [place], [address], [place]. tel:[phone] Family History Family Member Type Diagnosis Age At Onset No Information Payers Payer name Insurance type Covered libertarian ID Tatiana sexton(s) IVORY Frazier [id number] Social History Type Description Quantity Date Captured [...] No Information Instructions Date Instruction Additional Infor david Spenco othotics may place in kristin es for support Ok to take over the counter medi cations Take medications with food Wean out of [...]
--- OUTSIDE RECORDS SUMMARY | 2024-11-15 09:13 | XMS_ITS | Encounter Summary ---
Author Organization [facility] Address [address] [place] [address] Care Team Providers Care Pool Coordinator Name Role Phone No, Physician Primary Care Provider [phone] Unknown, Notinfile Primary Care Provider Unavail able Festus Grigsby MD Primary Care Provider [phone] Dakota Méndez MD Primary Care Provider [phone] Encounter Details Date Type Department Care Team (Late st Contact Info) Description 12/15/2023 Telephone Family [facility] [address] [address] Festus Grigsby MD [address] [place] [address] Social History Tobacco Use Types Packs/Day [...] on filedocumented in this encounter Care Teams Pool Coordinator Relationship Specialty Start Date End Date No, Physician PCP - General 12/20/22 01/13/24 Unknown, Notinfile PCP - General 01/17/24 01/22/24 Festus Grigsby MD [address] [place] [address] PCP - General Family Medicine 01/23/24 02/08/24 Dakota Méndez MD [facility] [place] [address] PCP - General Family Medicine 02/10/24 documented as of this encounter
--- OUTSIDE RECORDS SUMMARY | 2024-11-15 09:13 | XMS_ITS | Clinical Summary ---
Author Organization [employer] [facility] Address [address] [place] [address] Care Team Providers Care Director Strategic Planning Name Role Phone Unavailable Primary Care Provider [...] days. 2 mL 5 5 12:29 PM DISPATCH OFFICER 05/01/20 24 Active azithromycin (ZITHROMAX) 250 mg tablet Take 2 tablets on day 1 followed by 1 tablet daily on days 2-5. 6 Tablet 4 10:04 AM DISPATCH OFFICER 06/15/20 24 Active methylPREDNISo lone (MEDROL DOSPACK) 4 mg Tablets, Dose Pack Follow package instructions 21 Tablet 4 4:53 PM DISPATCH OFFICER 06/15/20 24 Active metFORMIN (GLUCOPHAGE XR) 750 mg Extended Release 24 hour tablet Take 1 tablet (750 mg) by mouth in the morning. Do not crush, chew, or split. 90 Tablet 1 5 2:55 PM CDT 08/22/19 25 Active tirzepatide (Mounjaro) 5 mg/0.5 mL Pen Injector Inject 0.5 mL (5 mg) by subcutaneous injection every 7 days. 2 mL 6 5 2:55 PM CDT 08/22/19 25 Active progesterone micronized (PROMETRIUM) 100 mg Capsule Take 2 Capsules (200 mg) by mouth daily in the morning; off 7 days; repeat cycle. 60 Capsule 2 5 7:35 PM CDT 10/10/19 25 Active estradiol-nore thindrone Acet (Activella) 1-0.5 mg tablet Take 1 Tablet by mouth daily. 84 Tablet 3 5 10:42 AM CDT 10/17/19 25 Active estradiol-nore thindrone Acet 1-0.5 mg tablet Take 1 Tablet by mouth daily. 84 Tablet 3 11/09/19 25 Active Synthroid 137 mcg tablet Take 1 Tablet (137 mcg) by mouth daily in the morning. 90 Tablet 3 5 7:00 PM CDT 11/14/19 25 Active Synthroid 125 mcg tablet Take 1 Tablet (125 mcg) by mouth daily in the morning. 90 Tablet 3 5 3:32 PM DISPATCH OFFICER 05/17/20 24 025 Discontinued clindamycin HCL (CLEOCIN) 300 mg Capsule Take 1 Capsule (300 mg) by mouth 3 times daily for 10 days. 30 Capsule 5 2:55 PM CDT 10/27/19 25 025 Encounters Date Type Department Care Team [...] years 2021 INFLUENZA VACCINE (#1) 2024 [place] [address] [employer] (INTERNAL) [facility] [employer] Commercial
--- OUTSIDE RECORDS SUMMARY | 2024-11-15 09:13 | XMS_ITS | Referral Summary ---
Author Organization [address] [facility] Address [address] [facility] [address] Care Team Providers Care Lab Courier Name Role Phone Dakota Méndez MD Primary Care Provider [phone] Allergies Active Allergy Reactions Criticality Noted Date [...] with the highest being >300. (Sent to [employer] and pulled from [employer] recs) Her A1C is in the 6%. [...] Comments Blood Pressure 115/75 06/03/2024 1:41 PM ELECTROMECHANIC Pulse 71 06/03/2024 1:41 PM ELECTROMECHANIC Temperature 36.3 C (97.4 F) 06/03/2024 1:41 PM ELECTROMECHANIC Respiratory Rate 18 06/03/2024 1:41 PM ELECTROMECHANIC Oxygen Saturation 100% 06/03/2024 1:41 PM ELECTROMECHANIC Inhaled Oxygen Concentration - - Weight 68 kg (150 lb) 06/03/2024 1:41 PM ELECTROMECHANIC Height 172.7 cm (5' 8 ) 06/03/2024 1:41 PM ELECTROMECHANIC Body Mass Index 22.81 06/03/2024 1:41 PM ELECTROMECHANIC Plan of Treatment Not on file Procedures Procedure Name Priority Date/Time Associated Diagnosis Comments EGFR STAT 06/03/2024 2:12 PM ELECTROMECHANIC from Last 3 Months or Most Recently Relevant to Health Maintenance Results * eGFR (06/03/2024 2:12 PM ELECTROMECHANIC) eGFR 72 >=60 mL/min/1. 73 m2 Comment: [...] last reviewed 2021. Blood 06/03/2024 2:12 PM ELECTROMECHANIC 06/03/2024 2:18 PM ELECTROMECHANIC us Blu Wan MD LAB BLOOD ORDERABLES Final Res ult [facility] [place] [facility] [address] [facility] [address] from Last 3 Months or Most Recently Relevant to Health Maintenance Insurance [facility] [place] [address] [facility] Advance Directives For more information, please contact: [phone] * Full Code (Latest Code Status on File) Date Activated Date Inactivated Comments 05/26/2023 4:30 PM 05/26/2023 9:10 PM Care Teams Lab Courier Relationship Specialty Start Date End Date Dakota Méndez MD [address] [place] [address] PCP - General Family Medicine 02/10/24
--- OUTSIDE RECORDS SUMMARY | 2024-11-15 09:13 | XMS_ITS | Clinical Summary ---
Author Organization [address] Address [address] [facility] [address] Care Team Providers Care Wash Helper Name Role Phone Dakota Méndez MD Primary Care Provider [phone] Allergies Active Allergy Reactions Criticality Noted Date [...] with the highest being >300. (Sent to [employer] and pulled from [employer] recs) Her A1C is in the 6%. [...] Comments Blood Pressure 115/75 06/03/2024 1:41 PM BAKER OPERATOR AUTOMATIC Pulse 71 06/03/2024 1:41 PM BAKER OPERATOR AUTOMATIC Temperature 36.3 C (97.4 F) 06/03/2024 1:41 PM BAKER OPERATOR AUTOMATIC Respiratory Rate 18 06/03/2024 1:41 PM BAKER OPERATOR AUTOMATIC Oxygen Saturation 100% 06/03/2024 1:41 PM BAKER OPERATOR AUTOMATIC Inhaled Oxygen Concentration - - Weight 68 kg (150 lb) 06/03/2024 1:41 PM BAKER OPERATOR AUTOMATIC Height 172.7 cm (5' 8 ) 06/03/2024 1:41 PM BAKER OPERATOR AUTOMATIC Body Mass Index 22.81 06/03/2024 1:41 PM BAKER OPERATOR AUTOMATIC Plan of Treatment Health Maintenance Due Date [...] Diagnosis Comments EGFR STAT 06/03/2024 2:12 PM BAKER OPERATOR AUTOMATIC from Last 3 Months or Most Recently Relevant to Health Maintenance Results * eGFR (06/03/2024 2:12 PM BAKER OPERATOR AUTOMATIC) eGFR 72 >=60 mL/min/1. 73 m2 Comment: [...] last reviewed 2021. Blood 06/03/2024 2:12 PM BAKER OPERATOR AUTOMATIC 06/03/2024 2:18 PM BAKER OPERATOR AUTOMATIC Blu Wan MD LAB BLOOD ORDERABLES Final Res ult SOL [facility] [address] [facility] Department [place] [address] from Last 3 Months or Most Recently Relevant to Health [place] [address] [facility] HMO/PPO Address: [address] [address] [place] [address] [facility] HMO/PPO Address: [address] [place] [address] Advance Directives For more information, please contact: [phone] * Full Code (Latest Code Status on File) Date Activated Date Inactivated Comments 05/26/2023 4:30 PM 05/26/2023 9:10 PM Care Teams Wash Helper Relationship Specialty Start Date End Date Dakota Méndez MD [facility] [place] [address] PCP - General Family Medicine 02/10/24
--- NOTE | 2024-11-15 09:25 | ECG_ITS ---
Test Date: 2024-11-15 09:36:34 Measurements Intervals [place] Rate: 61 P: 27 [place]: 120 QRS: 57 QRSD: 78 T: 82 QT: 383 QTc: 386 Interpretive Statements SINUS RHYTHM NONSPECIFIC T WAVE ABNORMALITY No previous ECG available for comparison Electronically Signed On 11-15-2024 11:58:56 CDT by Leigha Grant M.D.
--- NOTE | 2024-11-15 09:36 | ED_ITS ---
HPI - Dizziness General Chief Complaint: Dizziness Stated Complaint: still dizzy from head injury on wednesday Time Seen by Provider: 11/15/24 09:24 History of Present Illness HPI Narrative: 49-year-old female presents to the emergency department for dizziness after head injury that occurred 2 days ago. Patient was evaluated in our ED 11/13/2024 after she struck her head on a beam at work. No LOC. She is not on anticoagulants or antiplatelets. She had a CT brain that showed no acute intracranial findings. Patient states she has had dizziness, light sensitivity, mild headaches and nausea since. This morning she almost fell due to the dizziness at work twice and was pulled over by PD because she was not driving street. She states the dizziness is worse when she turns her head quickly, more notably to the left. She denies repeat head injury, diplopia, loss of vision, focal numbness or weakness, chest pain or shortness of breath. Denies syncope or seizure. Related Data Home Medications Medication Instructions Recorded Confirmed Last Taken Type levothyroxine 125 mcg tablet 125 mcg PO DAILY 06/22/24 11/13/24 Unknown History (Synthroid) metformin 750 mg tablet,extended 750 mg PO DAILY 06/22/24 11/13/24 Unknown History release 24 hr tirzepatide 5 mg/0.5 mL 5 mg subcut WEEKLY 06/22/24 11/13/24 Unknown History subcutaneous pen injector (Mounjaro) Allergies Allergy/AdvReac Type Severity Reaction Status Date / Time Penicillins Allergy Intermediate Nausea and Verified 11/15/24 09:08 Vomiting amoxicillin Allergy Mild Hives Verified 11/15/24 09:08 doxycycline Allergy Mild Hives Verified 11/15/24 09:08 nitrofurantoin (From Allergy Mild Hives Verified 11/15/24 09:08 Macrobid) tetracycline Allergy Mild Hives Verified 11/15/24 09:08 diazepam (From Valium) AdvReac Intermediate Difficulty Verified 11/15/24 09:08 Breathing Review of Systems 2 Review of Systems: All systems reviewed & are unremarkable except as noted in HPI and below PMFSH Past Medical History Medical History Screening mammogram for breast cancer Encounter for removal of intrauterine contraceptive device Abnormal uterine bleeding (AUB) Nonalcoholic fatty liver disease Diabetes Surgical History Surgical History History of cataract surgery H/O thyroidectomy Hx laparoscopic cholecystectomy Family History Family History Father Heart disease Diabetes mellitus Grandparent Diabetes mellitus Other Breast cancer Carcinoma of colon Social History Social History Smoking status: Never smoker Alcohol intake: current Alcohol use details: rare Substance use: never Substance use type: does not use Do You Feel Safe in your Home?: Yes Lack of Transportation: No Current Housing: I Have Housing Concerned About Future Housing: No Difficulty Paying Gas/Electric Bills: No Difficulty Paying for Meds: No Currently Unemployed: No Education: Master's Degree or Higher Difficulty w/ Childcare or Family Care: No Living arrangements: with family Occupation/Education: occupation Gender identity (if verbalized by the patient): Female Exam 2 Narrative: GENERAL: Well-appearing, well-nourished, and in no acute distress. HEAD: Normocephalic, atraumatic. EYES: PERRLA and EOMI. Unidirectional horizontal nystagmus ENT: Nares clear, no rhinorrhea or epistaxis. Mucous membranes moist. NECK: Supple. CHEST: Clear to auscultation. No respiratory distress. HEART: Regular rate and rhythm. No murmur heard. Normal peripheral pulses. ABDOMEN: Soft, nontender, nondistended, normal active bowel sounds. EXTREMITIES: Normal range of motion. No edema. SKIN: Warm, dry, no rash. NEURO: No focal deficits. Alert and oriented x4. Cranial nerves 2-12 intact. Strength 5/5 in BUE and BLE. Sensation intact throughout. Normal [id number]. No pronator drift. Course Vital Signs Vital signs: Vital Signs Temperature 97.9 F 11/15/24 09:15 Pulse Rate 68 11/15/24 09:15 Respiratory Rate 16 11/15/24 09:15 Blood Pressure 103/75 11/15/24 09:15 Pulse Oximetry 100 11/15/24 09:15 Oxygen Delivery Room Air 11/15/24 09:15 Temperature 97.9 F 11/15/24 09:15 Pulse Rate 61 11/15/24 11:45 Respiratory Rate 14 11/15/24 11:45 Blood Pressure 112/72 11/15/24 11:16 Pulse Oximetry 99 11/15/24 11:45 Oxygen Delivery Room Air 11/15/24 09:15 MDM - Dizziness MDM Narrative Medical decision making narrative: 49-year-old female presents to the emergency department for dizziness, photophobia, headache and nausea after head injury that occurred 2 days ago. Patient was evaluated in our ED after hitting her head on a metal beam on 09/13/2024. She did not lose consciousness. She is not anticoagulated or on antiplatelets. Triage vitals are stable. Patient is afebrile and nontoxic appearing. She is neurovascularly intact without focal or lateralizing deficits. She does have unidirectional horizontal nystagmus on exam. Her lab work shows no leukocytosis or anemia, chemistries are unremarkable. Chest x-ray shows no acute cardiopulmonary findings. negative. EKG shows normal sinus rhythm with a rate of 61 ppm, normal NE interval, normal QRS duration, normal QTC, no ischemic changes. Orthostatic vital signs normal. CBC without leukocytosis or anemia. Chemistries are largely unremarkable other than a mildly elevated BUN of 23. Fluids provided. Chest x-ray shows no acute cardiopulmonary findings. Patient updated on results. She received Tylenol, Zofran and meclizine without improvement. She ambulated to the bathroom with a nurse and had to be assisted the entire way. Patient is allergic to Valium, will trial scopolamine patch and Reglan. Given persistent vertigo, will add on CTA brain carotid for further evaluation. CTA brain carotid IMPRESSION: 1. 0% stenosis of the right and left carotid bulbs relative to normal distal artery lumen diameter (NASCET criteria). 2. Normal head CT and cerebral CT angiogram with no acute intracranial process, thrombosis or aneurysm. Patient updated on results. She was re-evaluated and states she is feeling much better after the Reglan and scopolamine. She is eating carrot cake on re- evaluation and ambulatory around the ED with a steady gait. She states she feels safe for discharge home. Sx consistent with concussion. Discussed cognitive rest, expectant management, and strict ED return precautions. She is given follow-up her PCP and prescriptions for Reglan, scopolamine and meclizine. She is agreeable with the plan verbalized understanding. Discharged in stable condition. Lab Data 11/15/24 10:35 11/15/24 09:41 Labs: Lab Results 11/15/24 11/15/24 11/15/24 Range/Units 09:41 10:35 11:30 WBC 7.9 (4.5-10.0) K/mm3 RBC 4.60 (4.2-5.4) M/mm3 Hgb 13.2 (12.0-15.0) g/dL Hct 39.6 (37.0-47.0) % MCV 86.1 (80-100) fl MCH 28.7 (26-34) pg MCHC 33.3 (32-36) g/dl RDW 13.3 (11.5-14.5) % Plt Count 331 (150-375) k/mm3 MPV 9.1 (7.4-10.4) fl Immature Gran % (Auto) 0.1 (0-0.5) % Neut % (Auto) 69.6 (45.5-73.1) % Lymph % (Auto) 24.7 (18.3-44.2) % [place] % (Auto) 3.8 (2.6-8.5) % Eos % (Auto) 0.9 (0-4.4) % Baso % (Auto) 0.9 (0.2-1.2) % Lymph # (Auto) 1.94 (0.9-3.2) K/mm3 [place] # (Auto) 0.3 (0.1-0.6) K/mm3 Eos # (Auto) 0.1 (0-0.3) K/mm3 Baso # (Auto) 0.1 (0.0-0.1) K/mm3 Abs Immat Gran (auto) 0.01 (0.00-0.031) K/mm3 Absolute Neuts (auto) 5.5 (1.3-6.7) K/mm3 Absolute Nucleated RBC 0.000 (0.0-0.012) K/mm3 Nucleated RBC % 0.0 (0.0-0.2) % Sodium 139 (137-145) mmol/L Potassium 4.0 (3.4-5.0) mmol/L Chloride 104 (98-107) mmol/L Carbon Dioxide 26 (22-30) mmol/L Anion Gap 9 (4-12) mmol/L BUN 23 H (7-17) mg/dL Creatinine 0.83 (0.7-1.0) mg/dL Estim Creat Clear Calc 73 ml/min Estimated GFR > 60 (59 - ) Glucose 86 (65-110) mg/dL Calcium 9.5 (8.4-10.2) mg/dL Total Bilirubin 0.2 (0.2-1.3) mg/dL AST 23 (14-36) U/L ALT 15 (6-35) U/L Alkaline Phosphatase 66 (38-126) U/L Total Protein 7.0 (6.3-8.2) g/dL Albumin 4.4 (3.5-5.1) g/dL POC Urine HCG, Qual Negative (Negative) Discharge Plan Discharge Clinical Impression: Concussion Qualifiers: Encounter type: initial encounter Loss of consciousness presence/duration: w ithout LOC Qualified Code(s): S06.0X0A - Concussion without loss of consciousness, initial encounter Patient Disposition: Home Condition: Stable Instructions: Antibiotic Form, Vertigo (ED), Concussion (ED) Additional Instructions: You were evaluated in the emergency department for dizziness after head injury. Your exam is reassuring. Your workup here is reassuring. Your symptoms are consistent with a concussion. Please follow the concussion protocols as discussed and make sure you are having cognitive rest. Please follow-up closely with primary care provider. Take the medications as needed as directed. Please do not drive until her symptoms have improved her your cleared by primary. Return to the emergency department if you develop loss of consciousness, significant worsening headache or dizziness, vision changes, focal numbness or weakness, seizure-like activity, or other concerning symptoms. Patient Language: Danish Prescriptions: New scopolamine base 1 mg over 3 days patch 3 day 1 patch transdermal Q3D PRN (Reason: nausea and vomiting) Qty: 4 0RF metoclopramide HCl 10 mg tablet 10 mg PO Q6H PRN (Reason: nausea and vomiting) Qty: 14 0RF meclizine 25 mg tablet 25 mg PO BID PRN (Reason: dizziness) Qty: 14 0RF No Action levothyroxine [Synthroid] 125 mcg tablet 125 mcg PO DAILY Mounjaro 5 mg/0.5 mL pen injector 5 mg subcut WEEKLY metformin 750 mg tablet extended release 24 hr 750 mg PO DAILY estradiol-norethindrone acet [Activella] 1-0.5 mg tablet 1 tablet PO DAILY Qty: 84 3RF Follow-up/Referrals: Aureliano Worthy MD [Physician] - UNKNOWN,DOCTOR [Primary Care Provider] - Stand Alone Forms: Work/School Release IP
--- OUTSIDE RECORDS SUMMARY | 2024-11-15 09:39 | XMS_ITS | Continuity of Care Document ---
Author Organization [facility] Address [address] [facility] [place] [address] Phone Care Team Providers Care Die Press Operator Name Role Phone Ebony Couhc MD Unavailable Unavailable Allergies, Adverse Reactions, Alerts [...] Encounter Office/outpat ient visit, est, prob foc [facility], [address] [place] [address], [id number], [phone] [facility] DOI 05-04-2012 Recheck left ankle and cuboid fracture (chief complaint) Fx closed fibula NOSFx closed foot, cuboid Iza B. [address] [place] [address], [facility], . tel:[phone] Office/outpat ient visit, est, prob [facility], [address] [place] [address], [id number], tel:[phone] [facility] Fx closed fibula NOSFx closed foot, cuboidAfter care, healing traumatic fx, lower leg Couch B. [address] [place] [address], [facility], . tel:[phone] Office/outpat ient visit, est, prob [facility], [address] [place] [address], [id number], tel:[phone] [facility] Fx closed fibula NOSFx closed foot, cuboid Couch B. [address] [place] [address], [facility], [place]. tel:[phone] Office/outpat ient visit, est, prob [facility], [address] [place] [address], [id number], tel:[phone] [facility] recheck left ankle (chief complaint) Fx closed foot, cuboidFx closed fibula NOS Couch B. [address] [place] [address], [facility], [place]. tel:[phone] Office/outpat ient visit, new, [facility], [address] [place] [address], [id number], tel:[phone] [facility] Fx closed fibula NOSFx closed foot, cuboid Iza Barkley [address] [place], [address], [place]. tel:[phone] Family History Family Member Type Diagnosis Age At Onset No Information Payers Payer name Insurance type Covered democrat ID Tatiana sexton(s) IVORY Frazier [id number] Social History Type Description Quantity Date Captured [...]
--- OUTSIDE RECORDS SUMMARY | 2024-11-15 09:39 | XMS_ITS | Referral Summary ---
Author Organization [address] lto Address [address] [place] [address] Care Team Providers Care Care Process Manager Name Role Phone Dakota Méndez MD Primary Care Provider [phone] Allergies Active Allergy Reactions Criticality Noted Date [...] with the highest being >300. (Sent to [employer] and pulled from [employer] recs) Her A1C is in the 6%. [...] Comments Blood Pressure 115/75 06/03/2024 1:41 PM CORPORATE SPECIALIST Pulse 71 06/03/2024 1:41 PM CORPORATE SPECIALIST Temperature 36.3 C (97.4 F) 06/03/2024 1:41 PM CORPORATE SPECIALIST Respiratory Rate 18 06/03/2024 1:41 PM CORPORATE SPECIALIST Oxygen Saturation 100% 06/03/2024 1:41 PM CORPORATE SPECIALIST Inhaled Oxygen Concentration - - Weight 68 kg (150 lb) 06/03/2024 1:41 PM CORPORATE SPECIALIST Height 172.7 cm (5' 8 ) 06/03/2024 1:41 PM CORPORATE SPECIALIST Body Mass Index 22.81 06/03/2024 1:41 PM CORPORATE SPECIALIST Plan of Treatment Not on file Procedures Procedure Name Priority Date/Time Associated Diagnosis Comments EGFR STAT 06/03/2024 2:12 PM CORPORATE SPECIALIST from Last 3 Months or Most Recently Relevant to Health Maintenance Results * eGFR (06/03/2024 2:12 PM CORPORATE SPECIALIST) eGFR 72 >=60 mL/min/1. 73 m2 Comment: [...] last reviewed 2021. Blood 06/03/2024 2:12 PM CORPORATE SPECIALIST 06/03/2024 2:18 PM CORPORATE SPECIALIST us Blu Wan MD LAB BLOOD ORDERABLES Final Res ult [facility] [place] [facility] [address] [facility] Department of [employer] [place] [address] from Last 3 Months or Most Recently Relevant to Health Maintenance Insurance [facility] HMO/PPO Address: [address] [place] [id number] [place] [address] [facility] HMO/PPO Address: [address] [place] [phone] Advance Directives For more information, please contact: [phone] * Full Code (Latest Code Status on File) Date Activated Date Inactivated Comments 05/26/2023 4:30 PM 05/26/2023 9:10 PM Care Teams Care Process Manager Relationship Specialty Start Date End Date Dakota Méndez MD [address] [place] [address] PCP - General Family Medicine 02/10/24
--- OUTSIDE RECORDS SUMMARY | 2024-11-15 09:39 | XMS_ITS | Encounter Summary ---
Author Organization [facility] Address [address] [place] [address] Care Team Providers Care Rv Repair Technician Name Role Phone No, Physician Primary Care Provider [phone] Unknown, Notinfile Primary Care Provider Unavail able Festus Grigsby MD Primary Care Provider [phone] Dakota Méndez MD Primary Care Provider [phone] Encounter Details Date Type Department Care Team (Late st Contact Info) Description 12/15/2023 Telephone [facility] [address] [address] Festus Grigsby MD [address] [place] [address] Social History Tobacco Use Types Packs/Day [...] on filedocumented in this encounter Care Teams Rv Repair Technician Relationship Specialty Start Date End Date No, Physician PCP - General 12/20/22 01/13/24 Unknown, Notinfile PCP - General 01/17/24 01/22/24 Festus Grigsby MD [address] [place] [address] PCP - General Family Medicine 01/23/24 02/08/24 Dakota Méndez MD [facility] [place] [address] PCP - General Family Medicine 02/10/24 documented as of this encounter
--- OUTSIDE RECORDS SUMMARY | 2024-11-15 09:39 | XMS_ITS | Clinical Summary ---
Author Organization [address] Address [address] [facility] [address] Care Team Providers Care Farmworker [employer] Name Role Phone Dakota Méndez MD Primary Care Provider [phone] Allergies Active Allergy Reactions Criticality Noted Date [...] with the highest being >300. (Sent to [employer] and pulled from [employer] recs) Her A1C is in the 6%. [...] Comments Blood Pressure 115/75 06/03/2024 1:41 PM SAFETY INSTRUCTION POLICE OFFICER Pulse 71 06/03/2024 1:41 PM SAFETY INSTRUCTION POLICE OFFICER Temperature 36.3 C (97.4 F) 06/03/2024 1:41 PM SAFETY INSTRUCTION POLICE OFFICER Respiratory Rate 18 06/03/2024 1:41 PM SAFETY INSTRUCTION POLICE OFFICER Oxygen Saturation 100% 06/03/2024 1:41 PM SAFETY INSTRUCTION POLICE OFFICER Inhaled Oxygen Concentration - - Weight 68 kg (150 lb) 06/03/2024 1:41 PM SAFETY INSTRUCTION POLICE OFFICER Height 172.7 cm (5' 8 ) 06/03/2024 1:41 PM SAFETY INSTRUCTION POLICE OFFICER Body Mass Index 22.81 06/03/2024 1:41 PM SAFETY INSTRUCTION POLICE OFFICER Plan of Treatment Health Maintenance Due Date [...] Diagnosis Comments EGFR STAT 06/03/2024 2:12 PM SAFETY INSTRUCTION POLICE OFFICER from Last 3 Months or Most Recently Relevant to Health Maintenance Results * eGFR (06/03/2024 2:12 PM SAFETY INSTRUCTION POLICE OFFICER) eGFR 72 >=60 mL/min/1. 73 m2 Comment: [...] last reviewed 2021. Blood 06/03/2024 2:12 PM SAFETY INSTRUCTION POLICE OFFICER 06/03/2024 2:18 PM SAFETY INSTRUCTION POLICE OFFICER Blu Wan MD LAB BLOOD ORDERABLES Final Res ult [facility] [place] [address] from Last 3 Months or Most Recently Relevant to [place] [address] [facility] Advance Directives For more information, please contact: [phone] * Full Code (Latest Code Status on File) Date Activated Date Inactivated Comments 05/26/2023 4:30 PM 05/26/2023 9:10 PM Care Teams Farmworker [employer] Relationship Specialty Start Date End Date Dakota Méndez MD [facility] [place] [address] PCP - General Family Medicine 02/10/24
--- OUTSIDE RECORDS SUMMARY | 2024-11-15 09:39 | XMS_ITS | Clinical Summary ---
Author Organization [facility] Address [address] [place] [address] Care Team Providers Care Process Cheese Cooker Name Role Phone Unavailable Primary Care Provider [...] days. 2 mL 5 5 12:29 PM SAP BUSINESS OBJECTS CONSULTANT 05/01/20 24 Active azithromycin (ZITHROMAX) 250 mg tablet Take 2 tablets on day 1 followed by 1 tablet daily on days 2-5. 6 Tablet 4 10:04 AM SAP BUSINESS OBJECTS CONSULTANT 06/15/20 24 Active methylPREDNISo lone (MEDROL DOSPACK) 4 mg Tablets, Dose Pack Follow package instructions 21 Tablet 4 4:53 PM SAP BUSINESS OBJECTS CONSULTANT 06/15/20 24 Active metFORMIN (GLUCOPHAGE XR) 750 [...] morning. 90 Tablet 3 5 3:32 PM SAP BUSINESS OBJECTS CONSULTANT 05/17/20 24 025 Discontinued clindamycin HCL (CLEOCIN) [...] years 2021 INFLUENZA VACCINE (#1) 2024 [place] [address] [employer] (INTERNAL) [facility] RX [employer] Commercial
[2024-11-15 10:00] LABS: Alanine Aminotransferase 15 U/L (6-35); Albumin Level 4.4 g/dL (3.5-5.1); Alkaline Phosphatase 66 U/L (38-126); Anion Gap 9 mmol/L (4-12); Aspartate Amino Transferase 23 U/L (14-36); Bilirubin,Total 0.2 mg/dL (0.2-1.3); Blood Urea Nitrogen 23 mg/dL (7-17); Calcium 9.5 mg/dL (8.4-10.2); Carbon Dioxide 26 mmol/L (22-30); Chloride 104 mmol/L (98-107); Estimated CRCL calculation 73 ml/min; Estimated Glomerular Filt Rate > 60; Glucose 86 mg/dL (65-110); Sodium 139 mmol/L (137-145)
[2024-11-15] MEDS: ONDANSETRON INJ 4 MG/2 ML VIAL IV PUSH (10:09)
[2024-11-15] MEDS: ACETAMINOPHEN 325 MG TABLET 650 MG PO (10:09)
[2024-11-15] MEDS: MECLIZINE HCL 25 MG TABLET PO (10:09)
[2024-11-15 10:43] LABS: Basophils Absolute Auto 0.1 K/mm3 (0.0-0.1); Basophils Percent Auto 0.9 % (0.2-1.2); Eosinophils Absolute Auto 0.1 K/mm3 (0-0.3); Eosinophils Percent Auto 0.9 % (0-4.4); Hematocrit 39.6 % (37.0-47.0); Hemoglobin 13.2 g/dL (12.0-15.0); Immature Granulocyte Absolute 0.01 K/mm3 (0.00-0.031); Immature Granulocyte Percent A 0.1 % (0-0.5); Lymphocytes Absolute Auto 1.94 K/mm3 (0.9-3.2); Lymphocytes Percent Auto 24.7 % (18.3-44.2); Mean Corpuscular HGB Conc 33.3 g/dl (32-36); Mean Corpuscular Hemoglobin 28.7 pg (26-34); Mean Corpuscular Volume 86.1 fl (80-100); Mean Platelet Volume 9.1 fl (7.4-10.4); Monocytes Absolute Auto 0.3 K/mm3 (0.1-0.6); Monocytes Percent Auto 3.8 % (2.6-8.5); Neutrophils Absolute Auto 5.5 K/mm3 (1.3-6.7); Neutrophils Percent Auto 69.6 % (45.5-73.1); Platelet Count Result 331 k/mm3 (150-375); Red Cell Distribution Width 13.3 % (11.5-14.5); White Blood Count 7.9 K/mm3 (4.5-10.0)
[2024-11-15 11:40] LABS: BEDSIDEPREGUCG Negative (Negative)
[2024-11-15] MEDS: SCOPOLAMINE 1 MG PATCH 1 PATCH TRANSDERM (11:45)
[2024-11-15] MEDS: METOCLOPRAMIDE HCL INJ 10 MG/2 ML VIAL IV PUSH (11:45)
== END 2024-11-15 12:50 | disposition home or self-care (01) ==
PROVIDERS: Emergency Provider Physician Assistant
DX: S06.0X0A Concussion without loss of consciousness, initial encounter (principal); E11.9 Type 2 diabetes mellitus without complications; E89.0 Postprocedural hypothyroidism; Z98.49 Cataract extraction status, unspecified eye; Z90.49 Acquired absence of other specified parts of digestive tract; Z79.899 Other long term (current) drug therapy; Z79.85 Long-term (current) use of injectable non-insulin antidiabetic drugs; Z79.84 Long term (current) use of oral hypoglycemic drugs; R94.31 Abnormal electrocardiogram [ECG] [EKG]; W22.8XXA Striking against or struck by other objects, initial encounter
CPT/HCPCS: 36415; 70496; 70498; 71046; 80053; 81025; 85025; 93005; 96374; 96375; 99284; A9270; J2405; J2765; Q9967